=== PATIENT | female | born 1960 | race Caucasian/White ===

== ENCOUNTER 2017-03-13 21:31 | Inpatient (IN) | payer BC ==
[2017-03-13] MEDS ORDERED: Famotidine IV* 10 MG/ML 2 ML (20 mg) IV ONE (22:39)
[2017-03-13] MEDS ORDERED: NS 0.9% 1000 ML* 1,000 ML IV ONE (22:39)
[2017-03-13] MEDS ORDERED: Ondansetron INJ* 2 MG/ML VIAL IV ONE (22:39)
[2017-03-13] MEDS ORDERED: Morphine INJ* 4 MG/ML 1 ML CARPUJECT IV ONE (22:39)
[2017-03-13 23:42] LABS: EGFR Non-African American 119.3 (>60)
[2017-03-13 23:53] LABS: ABS Basophils 0 10^3/ul (0-0.2); ABS Eosinophils 0 10^3/ul (0-0.6); ABS Lymphocytes 0.1 10^3/ul (1.0-4.8); ABS Monocytes 0.2 10^3/ul (0-0.8); ABS Neutrophils 0.9 10^3/ul (1.5-7.7); ABS Nucleated RBC 0 10^3/ul; Eosinophil % 0 % (0-6); Hematocrit 29 % (35-47); Hemoglobin 10.1 g/dl (12.0-16.0); Mean Corpuscular HGB Conc 35 g/dl (31-36); Mean Corpuscular Hemoglobin 28 pg (27-31); Mean Corpuscular Volume 81 fL (80-97); Mean Platelet Volume 7 um3 (7.4-10.4); Nucleated Red Blood Cells % 0.2; Platelet Count 73 10^3/ul (150-450); Red Blood Count 3.58 10^6/ul (4.0-5.4); Red Cell Distribution Width 15 % (10.5-15); White Blood Count 1.2 10^3/ul (3.5-10.8)
[2017-03-14] MEDS ORDERED: Diazepam SYRINGE* 5 MG/ML 2 ML SYRINGE (10 MG total) IV ONE (00:23)
--- NOTE | 2017-03-14 00:35 | ED ---
Kate Yusuf Edward, scribed for Nela Arnold MD on 03/13/17 at 2226 . Complex/Multi-Sys Presentation - HPI Summary HPI Summary: 57 y/o female presents to the ED c/o N/V intermittently throughout the day today. Pt also c/o ABD pain described as radiation pain. Not aggravated or alleviated with anything. Pt has been taking Zofran at home and and has a patch on right now. PMHx gastric CA - pt finished chemotherapy one week ago. CA dx . - History Of Current Complaint Chief Complaint: EDNauseaVomitDiarrh Time Seen by Provider: 03/13/17 22:21 Hx Obtained From: Patient Onset/Duration: Lasting Hours Timing: Intermittent, Lasting: Associated Signs And Symptoms: Positive: Nausea, Vomiting, Abdominal Pain - Allergies/Home Medications Allergies/Adverse Reactions: Allergies Allergy/AdvReac Type Severity Reaction Status Date / Time Bee Venom Allergy Hives/Diff. Verified 02/18/17 12:18 Breathing/I tching Influenza Vaccines Allergy Anaphylatic Verified 02/18/17 12:17 Shock Latex Allergy Hives Verified 10/05/16 15:07 Sulfate Allergy Hives/Diff. Verified 02/18/17 12:18 Breathing/I tching FLU SHOT Allergy Severe Anaphylatic Uncoded 10/05/16 15:07 Shock ANTS Allergy Hives Uncoded 10/05/16 15:07 BEES Allergy SWEELING, Uncoded 10/05/16 15:07 SOB SULFATES Allergy HIVES, SOB Uncoded 10/05/16 15:07 PMH/Surg Hx/FS Hx/Imm Hx Previously Healthy: No Endocrine/Hematology History: Reports: Hx Thyroid Disease, Hx Anemia - VIT B 12 SHOTS Denies: Hx Diabetes Cardiovascular History: Denies: Hx Hypertension, Hx Pacemaker/ICD, Other Cardiovascular Problems/ Disorders History: Denies: Hx Renal Disease Musculoskeletal History: Reports: Other Musculoskeletal History - hx of left knee injury several yrs ago starting. Sensory History: Reports: Hx Contacts or Glasses Denies: Hx Hearing Aid Opthamlomology History: Reports: Hx Contacts or Glasses Neurological History: Reports: Other Neuro Impairments/Disorders - Current neuropathic pain Psychiatric History: Reports: Hx Anxiety, Hx Depression - ON MEDS Denies: Hx Panic Disorder - Cancer History Cancer Type, Location and Year: STOMACH CA - Surgical History Surgery Procedure, Year, and Place: 1995, OVARIAN CYST , [facility] [place] - OVARY REMOVAL;. TONSILECTOMY, AGE 6,[facility] [place];. THYROID, 2000, [facility] [place] [facility];. HEMMORRHOIDECTOMY, 2003, [facility] [place];. C SPINE, 2009, [facility] [place];. KNEE SURGERY;. ABDOMINAL SURGERY FOR STOMACH CANCER REMOVAL Hx Anesthesia Reactions: No Infectious Disease History: No Infectious Disease History: Denies: Traveled Outside the [place] in Last 30 Days - Family History Known Family History: Positive: Unknown - Social History Alcohol Use: None Hx Substance Use: No Substance Use Type: Reports: None Hx Tobacco Use: Yes Smoking Status (MU): Former Smoker Type: Cigarettes Have You Smoked in the Last Year: No Review of Systems Constitutional: Negative Eyes: Negative ENT: Negative Cardiovascular: Negative Respiratory: Negative Positive: Abdominal Pain - radiation pain, Vomiting, Nausea Genitourinary: Negative Musculoskeletal: Negative Skin: Negative Neurological: Negative Psychological: Normal All Other Systems Reviewed And Are Negative: Yes Physical Exam - Summary Physical Exam Summary: VITAL SIGNS: Reviewed. GENERAL: Patient is a well-developed and nourished female who is lying comfortable in the stretcher. Patient is not in any acute respiratory distress. HEAD AND FACE: No signs of trauma. No ecchymosis, hematomas or skull depressions. No sinus tenderness. EYES: PERRLA, EOMI x 2, No injected conjunctiva, no nystagmus. EARS: Hearing grossly intact. Ear canals and tympanic membranes are within normal limits. MOUTH: Oropharynx within normal limits. NECK: Supple, trachea is midline, no adenopathy, no JVD, no carotid bruit, no c- spine tenderness, neck with full ROM. CHEST: Symmetric, no tenderness at palpation LUNGS: Clear to auscultation bilaterally. No wheezing or crackles. CVS: Regular rate and rhythm, S1 and S2 present, no murmurs or gallops appreciated. ABDOMEN: Soft, diffuse ABD tenderness mainly in the periumbilical region, mainly old. No signs of distention. No rebound no guarding, and no masses palpated. Bowel sounds are normal. EXTREMITIES: FROM in all major joints, no edema, no cyanosis or clubbing. NEURO: Alert and oriented x 3. No acute neurological deficits. Speech is normal and follows commands. SKIN: Dry and warm Triage Information Reviewed: Yes Vital Signs On Initial Exam: Initial Vitals Temp Pulse Resp BP Pulse Ox 96.7 F 95 18 124/93 98 03/13/17 21:44 03/13/17 21:44 03/13/17 21:44 03/13/17 21:44 03/13/17 21:44 Vital Signs Reviewed: Yes Diagnostics - Vital Signs Vital Signs Temp Pulse Resp BP Pulse Ox 03/13/17 21:44 96.7 F 95 18 124/93 98 - Laboratory Result Diagrams: 03/13/17 23:15 03/13/17 23:15 Lab Statement: Any lab studies that have been ordered have been reviewed, and results considered in the medical decision making process. Complex Multi-Symp Course/Dx Assessment/Plan: 57 y/o female with gastric CA presents to ED c/o vomiting starting today. Discussed the case with Dr. Talley of Oncology, who recommends the pt be admitted to the hospitalist. Spoke with Dr. Key who accepted the pt for admission. - Diagnoses Provider Diagnoses: Intractable vomiting - Physician Notifications Discussed Care Of Patient With: Tanja Talley Time Discussed With Above Provider: 00:24 Instructed by Provider To: Admit As Inpatient Discharge - Discharge Plan Condition: Stable Disposition: ADMITTED TO [facility] Referrals: Matt Owens, [employer] [Primary Care Provider] - The documentation as recorded by the Kate ceja Edward accurately reflects the service I personally performed and the decisions made by , eNla Arnold MD.
[2017-03-14] MEDS ORDERED: Diazepam INJ (NF) 5 MG/ML 10 ML VIAL (50 MG TOTAL) IV ONE (01:00)
[2017-03-14] MEDS ORDERED: Metoclopramide IV* 5 MG/ML 2 ML VIAL IV SLOW PU ONE (02:42)
[2017-03-14] MEDS ORDERED: Ondansetron INJ* 2 MG/ML VIAL IV ONE (02:43)
[2017-03-14] MEDS ORDERED: Albuterol 2.5 MG/3 ML NEB.SOL* (0.083%) INH PRN (04:59)
[2017-03-14] MEDS ORDERED: LORazepam INJ* 2 MG/ML 1 ML VIAL IV PRN (04:59)
[2017-03-14] MEDS: PROCHLORPERAZINE INJ 5 MG/ML 2 ML VIAL IV PRN (05:27)
[2017-03-14 05:48] LABS: EGFR Non-African American 147.9 (>60)
[2017-03-14 05:57] LABS: INR 1.05 (0.77-1.02)
--- NOTE | 2017-03-14 06:04 | HP ---
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 She began having intermittent N/V ~10days ago, but since Tuesday has been unable to keep any solids down. She has been successful keeping some, but not all liquids down. Her last chemo-TX was the Tuesday before last. Her last radio-TX was Tuesday the . She denies F/C, sweats, chest pain, SOB, palpitations, bloody or black emesis, or other issues aside from constipation. PMedHx gastric CA diagnosed 2016 anemia vitamin B deficiency hypothyroidism GERD depression Ambulatory Orders Nursing to reconcile. Epinephrine [Epipen 2-Santana] 0.3 mg IM SEE INSTRUCTIONS PRN 08/11/16 Ferrous Sulfate TAB* 325 mg PO DAILY 08/11/16 LORazepam TAB(*) [Ativan 1 MG TAB (*)] 1 mg PO Q6H PRN 08/11/16 Levothyroxine TAB* [Synthroid TAB*] 25 - 50 mcg PO SEE INSTRUCTIONS 08/11/16 Omeprazole CAP* [Prilosec CAP* 20 MG] 20 mg PO DAILY 08/11/16 Sucralfate TAB* [Carafate*] 1 gm PO ACHS 08/11/16 Cyanocobalamin INJ * [Vitamin B12 INJ *] 1,000 mcg IM MONTHLY 08/13/16 Docusate Sodium [Stool Softener] 100 mg PO DAILY PRN 08/13/16 Ibuprofen TAB* [Motrin TAB* 800 MG] 800 mg PO Q6H PRN 08/13/16 Muscle Relaxer PO PRN 08/13/16 Sertraline* [Zoloft*] 100 mg PO BEDTIME 08/13/16 traMADol TAB* [Ultram*] 1 - 2 tab PO Q6HR PRN 08/13/16 Dronabinol CAP* [Marinol CAP*] 2.5 mg PO BID 09/27/16 Ondansetron ODT TAB* [Zofran 4 MG Odt TAB*] 4 mg PO Q4H PRN 09/27/16 Scopolamine 1.5 mg* PATCH* [Transderm-Scop 1.5 mg Patch*] 1 patch TRANSDERM Q72H 09/27/16 oxyCODONE TAB* [Roxycodone TAB 5 mg*] 5 mg PO Q6H PRN 09/27/16 oxyCODONE TAB* [Roxycodone TAB 5 mg*] 5 mg PO Q4H PRN #120 tab MDD 30mg LORazepam TAB(*) [Ativan 1 MG TAB (*)] 1 mg PO Q6H PRN #120 tab MDD 4mg Morphine TAB Extended Rel(*) [Ms Contin(*)] 15 mg PO Q12HR #60 tab.er MDD 30 mg 02/22/17 Allergies Bee Venom Allergy (Verified 02/18/17 12:18) Hives/Diff.Breathing/Itching Influenza Vaccines Allergy (Verified 02/18/17 12:17) Anaphylatic Shock Latex Allergy (Verified 10/05/16 15:07) Hives HIVES Sulfate Allergy (Verified 02/18/17 12:18) Hives/Diff.Breathing/Itching FLU SHOT Allergy (Severe, Uncoded 10/05/16 15:07) Anaphylatic Shock ANTS Allergy (Uncoded 10/05/16 15:07) Hives HIVES BEES Allergy (Uncoded 10/05/16 15:07) SWEELING, SOB SWELLING, SOB SULFATES Allergy (Uncoded 10/05/16 15:07) HIVES, SOB SOB, HIVES PSurgHx partial thyroidectomy not for cancer C 6-7 laminectomy section L knee arthroscopy tonsillectomy laparotomy for gastric CA (halted 2nd supa-aortic involvement) SocHx: quit smoking >25years ago, no alcohol or recreational drugs, uses marijuana for pain/nausea; [employer]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; , lives with her ; full code status FamHx: positive for lung CA & alcoholism ROS: as above, otherwise reviewed and all were negative vitals: Vital Signs Temp 36.8 C 03/14/17 04:59 Pulse 89 03/14/17 02:00 Resp 18 03/14/17 05:00 BP 120/74 03/14/17 05:21 Pulse Ox 98 01/22/18 05:21 Intake & Output 03/13/17 03/13/17 03/14/17 11:59 23:59 11:59 Intake Total 1000 Balance 1000 Weight 64.864 kg Intake: IV Fluids 1000 Constitutional: NAD, normally developed, well-nourished white female HEENM: atraumatic; sclera/conjunctiva: anicteric/clear; hearing: clinically intact; oropharynx: clear, mucosa moist Neck: soft tissue: non-tender; thyroid: non-tender Pulmonary: clear to auscultation bilaterally, good aeration, no accessory muscle use CV: RR/RR, normal S1S2, no carotid bruit, no jugular venous distention, 2+ B DP/ PT, no edema Abdominal: soft, non-distended, diffusely mildly tender, no rebound/guarding/ rigidity, normoactive bowel sounds, no hepatosplenomegaly or masses, no costovertebral angle tenderness Musculoskeletal: general: grossly intact; gait: stable Integumental: normal appearance and texture of exposed skin Psychiatric orientation: AA&O to PPS affect: calm mood: cooperative eye contact: good content: reliable responses: timely insight: good Testing: Lab Results 03/13/17 03/13/17 03/13/17 Range/Units 23:15 23:15 23:15 WBC 1.2 L (3.5-10.8) 10^3/ul RBC 3.58 L (4.0-5.4) 10^6/ul Hgb 10.1 L (12.0-16.0) g/dl Hct 29 L (35-47) % MCV 81 (80-97) fL MCH 28 (27-31) pg MCHC 35 (31-36) g/dl RDW 15 (10.5-15) % Plt Count 73 L (150-450) 10^3/ul MPV 7 L (7.4-10.4) um3 Neut % (Auto) 76.8 (38-83) % Lymph % (Auto) 7.0 L (25-47) % [place] % (Auto) 15.8 H (1-9) % Eos % (Auto) 0 (0-6) % Baso % (Auto) 0.4 (0-2) % Absolute Neuts (auto) 0.9 L* (1.5-7.7) 10^3/ul Absolute Lymphs (auto) 0.1 L (1.0-4.8) 10^3/ul Absolute Monos (auto) 0.2 (0-0.8) 10^3/ul Absolute Eos (auto) 0 (0-0.6) 10^3/ul Absolute Basos (auto) 0 (0-0.2) 10^3/ul Absolute Nucleated RBC 0 10^3/ul Nucleated RBC % 0.2 INR (Anticoag Therapy) (0.77-1.02) APTT (26.0-36.3) seconds Sodium 138 (133-145) mmol/L Potassium 3.7 (3.5-5.0) mmol/L Chloride 106 (101-111) mmol/L Carbon Dioxide 26 (22-32) mmol/L Anion Gap 6 (2-11) mmol/L BUN 14 (6-24) mg/dL Creatinine 0.53 (0.51-0.95) mg/dL Est GFR ( Amer) 153.5 (>60) Est GFR (Non-Af Amer) 119.3 (>60) BUN/Creatinine Ratio 26.4 H (8-20) Glucose 98 (70-100) mg/dL Lactic Acid 0.6 (0.5-2.0) mmol/L Calcium 9.5 (8.6-10.3) mg/dL Total Bilirubin 0.30 (0.2-1.0) mg/dL AST 12 L (13-39) U/L ALT 7 (7-52) U/L Alkaline Phosphatase 48 (34-104) U/L Total Protein 6.1 L (6.4-8.9) g/dL Albumin 3.5 (3.2-5.2) g/dL Globulin 2.6 (2-4) g/dL Albumin/Globulin Ratio 1.3 (1-3) Amylase 31 (29-103) U/L Lipase < 10 L (11.0-82.0) U/L 03/14/17 03/14/17 Range/Units 05:10 05:10 WBC (3.5-10.8) 10^3/ul RBC (4.0-5.4) 10^6/ul Hgb (12.0-16.0) g/dl Hct (35-47) % MCV (80-97) fL MCH (27-31) pg MCHC (31-36) g/dl RDW (10.5-15) % Plt Count (150-450) 10^3/ul MPV (7.4-10.4) um3 Neut % (Auto) (38-83) % Lymph % (Auto) (25-47) % [place] % (Auto) (1-9) % Eos % (Auto) (0-6) % Baso % (Auto) (0-2) % Absolute Neuts (auto) (1.5-7.7) 10^3/ul Absolute Lymphs (auto) (1.0-4.8) 10^3/ul Absolute Monos (auto) (0-0.8) 10^3/ul Absolute Eos (auto) (0-0.6) 10^3/ul Absolute Basos (auto) (0-0.2) 10^3/ul Absolute Nucleated RBC 10^3/ul Nucleated RBC % INR (Anticoag Therapy) 1.05 H (0.77-1.02) APTT 31.2 (26.0-36.3) seconds Sodium (133-145) mmol/L Potassium (3.5-5.0) mmol/L Chloride (101-111) mmol/L Carbon Dioxide (22-32) mmol/L Anion Gap (2-11) mmol/L BUN 14 (6-24) mg/dL Creatinine 0.44 L (0.51-0.95) mg/dL Est GFR ( Amer) 190.2 (>60) Est GFR (Non-Af Amer) 147.9 (>60) BUN/Creatinine Ratio (8-20) Glucose (70-100) mg/dL Lactic Acid (0.5-2.0) mmol/L Calcium (8.6-10.3) mg/dL Total Bilirubin (0.2-1.0) mg/dL AST (13-39) U/L ALT (7-52) U/L Alkaline Phosphatase (34-104) U/L Total Protein (6.4-8.9) g/dL Albumin (3.2-5.2) g/dL Globulin (2-4) g/dL Albumin/Globulin Ratio (1-3) Amylase (29-103) U/L Lipase (11.0-82.0) U/L Impression: 57F on treatment for locally advanced gastric CA presenting with intractable N/V, neutropenia DIAGNOSIS & PLAN Primary intractable N/V : anti-emetics : IVFs : trend labs, monitor neutropenia & pancytopenia 2nd chemo-TX : neutropenic precautions : trend locally advanced gastric CA : management per oncology Secondary hypothyroidism : review meds once reconciled GERD : omeprazole depression : continue meds once reconciled Admission Rational: observation for intractable N/V DVTp: heparin SQ Code Status: full HCP:
[2017-03-14] MEDS: NS 0.9% 1000 ML* 1,000 ML IV SCH ×3 (06:21→22:18)
[2017-03-14] MEDS: Docusate CAP* 100 MG PO SCH ×2 (07:57→22:12)
[2017-03-14] MEDS: Pantoprazole IV* 40 MG IV SCH (07:58)
[2017-03-14] MEDS: Magic M W2 Ben/Maal/Nyst/Lido* 240 ML MOUTHWASH (alt formulation) SWISH SWAL SCH ×2 (07:58→13:27)
--- NOTE | 2017-03-14 10:24 | PN ---
Progress Note - Progress Note Date of Service: 03/14/17 SOAP: Subjective: []Feels a little better than overnight, but still cont.'d discomfort. Nausea and abd. pain/burning. Threw up this AM. Has a lot of phlegm. Room temp. fluids are best. Frustrated with wt. loss and concerned what this will mean for potential surgery. Tired and just wants to sleep. Medications: Acetaminophen (Tylenol Tab*) 650 mg PO Q6H PRN PRN Reason: FEVER/PAIN Albuterol (Ventolin 2.5 Mg/3 Ml Neb.Liz*) 2.5 mg INH Q2H PRN PRN Reason: SOB/WHEEZING Docusate Sodium (Colace Cap*) 200 mg PO BID [facility] Last Admin: 03/14/17 07:57 Dose: 200 mg Heparin Sodium (Porcine) (Heparin Vial(*)) 5,000 units SUBCUT Q8HR [facility] Sodium Chloride (Ns 0.9% 1000 Ml*) 1,000 mls @ 125 mls/hr IV PER RATE [facility] Last Admin: 03/14/17 06:21 Dose: 125 mls/hr Lorazepam (Ativan Inj*) 0.5 mg IV Q4H PRN PRN Reason: nausea Melatonin (Melatonin (Nf)) 3 mg PO BEDTIME PRN; Protocol PRN Reason: Sleep Metoclopramide HCl (Reglan Iv*) 10 mg IV Q6H PRN PRN Reason: NAUSEA Morphine Sulfate (Morphine Inj (Syringe)*) 4 mg IV Q4H PRN PRN Reason: PAIN Morphine Sulfate (Ms Contin(*)) 15 mg PO Q12HR [facility] Multi-Ingredient Mouthwash/Gargle (Magic M W2 Sherwin/Maal/Nyst/Lido*) 5 ml SWISH SWAL AC [facility] Last Admin: 03/14/17 07:58 Dose: 5 ml Ondansetron HCl (Zofran Inj*) 4 mg IV Q6H PRN PRN Reason: NAUSEA Pantoprazole Sodium (Protonix Iv*) 40 mg IV DAILY [facility] Last Admin: 03/14/17 07:58 Dose: 40 mg Prochlorperazine Edisylate (Compazine Inj*) 10 mg IV Q6H PRN PRN Reason: NAUSEA Last Admin: 03/14/17 05:27 Dose: 10 mg Sucralfate (Carafate*) 1 gm PO ACHS DARREN Objective: [] Vital Signs Temp Pulse Resp BP Pulse Ox 98.2 F 73 19 130/76 99 03/14/17 08:09 03/14/17 08:09 03/14/17 09:42 03/14/17 08:09 03/14/17 08:09 A&Ox3, EOMI, ROACH, neuro grossly non-focal HRR, S1S2, no murmur noted LS clear bilat., resp. even and non-labored +BS, abd. soft with mild tenderness to LLQ Laboratory Results - last 24 hr 03/13/17 03/13/17 03/13/17 23:15 23:15 23:15 WBC 1.2 L RBC 3.58 L Hgb 10.1 L Hct 29 L MCV 81 MCH 28 MCHC 35 RDW 15 Plt Count 73 L MPV 7 L Neut % (Auto) 76.8 Lymph % (Auto) 7.0 L [place] % (Auto) 15.8 H Eos % (Auto) 0 Baso % (Auto) 0.4 Absolute Neuts (auto) 0.9 L* Absolute Lymphs (auto) 0.1 L Absolute Monos (auto) 0.2 Absolute Eos (auto) 0 Absolute Basos (auto) 0 Absolute Nucleated RBC 0 Nucleated RBC % 0.2 INR (Anticoag Therapy) APTT Sodium 138 Potassium 3.7 Chloride 106 Carbon Dioxide 26 Anion Gap 6 BUN 14 Creatinine 0.53 Est GFR ( Amer) 153.5 Est GFR (Non-Af Amer) 119.3 BUN/Creatinine Ratio 26.4 H Glucose 98 Lactic Acid 0.6 Calcium 9.5 Total Bilirubin 0.30 AST 12 L ALT 7 Alkaline Phosphatase 48 Total Protein 6.1 L Albumin 3.5 Globulin 2.6 Albumin/Globulin Ratio 1.3 Amylase 31 Lipase < 10 L 03/14/17 03/14/17 05:10 05:10 WBC RBC Hgb Hct MCV MCH MCHC RDW Plt Count MPV Neut % (Auto) Lymph % (Auto) [place] % (Auto) Eos % (Auto) Baso % (Auto) Absolute Neuts (auto) Absolute Lymphs (auto) Absolute Monos (auto) Absolute Eos (auto) Absolute Basos (auto) Absolute Nucleated RBC Nucleated RBC % INR (Anticoag Therapy) 1.05 H APTT 31.2 Sodium Potassium Chloride Carbon Dioxide Anion Gap BUN 14 Creatinine 0.44 L Est GFR ( Amer) 190.2 Est GFR (Non-Af Amer) 147.9 BUN/Creatinine Ratio Glucose Lactic Acid Calcium Total Bilirubin AST ALT Alkaline Phosphatase Total Protein Albumin Globulin Albumin/Globulin Ratio Amylase Lipase Assessment: []57 yo female with locally advanced gastric cancer now s/p combined carbo/taxol /XRT admitted with intractable nausea and vomiting 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 Plan: []1. Cont. OBV through today, needs to have PO intake without emesis prior to d/ c 2. Increase ativan IV frequency to q4hrs, resume carafate, change MMW to BMX, add H2 alex along with PPI 3. Check labs in AM 4. Med Rec, resume Morphine ER and will add IV for breakthrough 5. Soft diet encouraged
[2017-03-14] MEDS: Morphine TAB Extended Release (*) 15 MG TAB.ER PO SCH ×2 (10:27→22:13)
[2017-03-14] MEDS: Morphine INJ* 4 MG/ML 1 ML CARPUJECT IV PRN ×3 (10:27→22:14)
[2017-03-14] MEDS: Sucralfate TAB* 1 GM PO SCH ×3 (14:23→22:12)
[2017-03-14] MEDS: LORazepam INJ* 2 MG/ML 1 ML VIAL IV PRN ×2 (14:23→22:14)
[2017-03-14] MEDS: Magic Mouth Was-BEN/MAAL/LIDO SWISH SWAL SCH ×4 (14:24→22:18)
[2017-03-14] MEDS: Famotidine IV* 10 MG/ML 2 ML (20 mg) IV SCH (14:24)
[2017-03-14] MEDS: Ondansetron INJ* 2 MG/ML VIAL IV PRN (19:55)
[2017-03-14] MEDS ORDERED: Famotidine IV * 20 MG in NS 0.9% 100 ML* 100 ML IVPB SCH (20:00)
[2017-03-14] MEDS ORDERED: Omeprazole CAP* 20 MG ONE (21:11)
[2017-03-15] MEDS: Heparin VIAL(*) 5000 UNITS/ML VIAL (FIVE THOUSAND) SUBCUT SCH ×3 (04:31→22:25)
[2017-03-15] MEDS: Morphine INJ* 4 MG/ML 1 ML CARPUJECT IV PRN ×3 (04:31→19:40)
[2017-03-15 05:01] LABS: EGFR Non-African American 137.1 (>60)
[2017-03-15 05:33] LABS: ABS Basophils 0 10^3/ul (0-0.2); ABS Eosinophils 0 10^3/ul (0-0.6); ABS Lymphocytes 0.1 10^3/ul (1.0-4.8); ABS Monocytes 0.2 10^3/ul (0-0.8); ABS Neutrophils 0.5 10^3/ul (1.5-7.7); ABS Nucleated RBC 0 10^3/ul; Eosinophil % 0 % (0-6); Hematocrit 27 % (35-47); Hemoglobin 9.2 g/dl (12.0-16.0); Lymphocyte % 16.6 % (25-47); Mean Corpuscular HGB Conc 34 g/dl (31-36); Mean Corpuscular Hemoglobin 28 pg (27-31); Mean Corpuscular Volume 82 fL (80-97); Mean Platelet Volume 6 um3 (7.4-10.4); Nucleated Red Blood Cells % 0; Platelet Count 64 10^3/ul (150-450); Red Blood Count 3.27 10^6/ul (4.0-5.4); Red Cell Distribution Width 15 % (10.5-15); White Blood Count 0.8 10^3/ul (3.5-10.8)
[2017-03-15] MEDS: NS 0.9% 1000 ML* 1,000 ML IV SCH ×2 (06:00→23:09)
[2017-03-15] MEDS: Acetaminophen TAB* 325 MG PO PRN (06:03)
[2017-03-15] MEDS: Docusate CAP* 100 MG PO SCH ×2 (08:03→19:41)
[2017-03-15] MEDS: Morphine TAB Extended Release (*) 15 MG TAB.ER PO SCH ×2 (08:03→19:41)
[2017-03-15] MEDS: Sucralfate TAB* 1 GM PO SCH (08:03)
[2017-03-15] MEDS: Ondansetron INJ* 2 MG/ML VIAL IV PRN ×2 (08:04→15:03)
[2017-03-15] MEDS: Famotidine IV* 10 MG/ML 2 ML (20 mg) IV SCH (08:04)
[2017-03-15] MEDS: Pantoprazole IV* 40 MG IV SCH (08:04)
[2017-03-15] MEDS: Magic Mouth Was-BEN/MAAL/LIDO SWISH SWAL SCH ×4 (08:04→19:41)
[2017-03-15] MEDS: LORazepam INJ* 2 MG/ML 1 ML VIAL IV PRN ×2 (10:33→16:46)
[2017-03-15] MEDS: Sucralfate SUSP 1 GM/10 ml 10 ML UDC PO SCH ×3 (13:28→19:42)
[2017-03-15] MEDS: CMCS: Melatonin (NF) 3 MG TAB PO PRN (19:38)
[2017-03-15] MEDS: Metoclopramide IV* 5 MG/ML 2 ML VIAL IV PRN (19:39)
[2017-03-16] MEDS: Ondansetron INJ* 2 MG/ML VIAL IV PRN ×2 (01:50→08:57)
[2017-03-16] MEDS: PROCHLORPERAZINE INJ 5 MG/ML 2 ML VIAL IV PRN ×2 (02:17→15:11)
[2017-03-16] MEDS: LORazepam INJ* 2 MG/ML 1 ML VIAL IV PRN ×4 (02:29→21:37)
[2017-03-16] MEDS: Heparin VIAL(*) 5000 UNITS/ML VIAL (FIVE THOUSAND) SUBCUT SCH ×3 (04:17→21:25)
[2017-03-16] MEDS: Metoclopramide IV* 5 MG/ML 2 ML VIAL IV PRN ×2 (05:35→17:35)
[2017-03-16 06:24] LABS: ABS Basophils 0 10^3/ul (0-0.2); ABS Eosinophils 0 10^3/ul (0-0.6); ABS Lymphocytes 0.1 10^3/ul (1.0-4.8); ABS Monocytes 0.2 10^3/ul (0-0.8); ABS Neutrophils 0.6 10^3/ul (1.5-7.7); ABS Nucleated RBC 0 10^3/ul; Eosinophil % 0 % (0-6); Hematocrit 26 % (35-47); Hemoglobin 8.9 g/dl (12.0-16.0); Lymphocyte % 13.3 % (25-47); Mean Corpuscular HGB Conc 35 g/dl (31-36); Mean Corpuscular Hemoglobin 28 pg (27-31); Mean Corpuscular Volume 81 fL (80-97); Mean Platelet Volume 6 um3 (7.4-10.4); Nucleated Red Blood Cells % 0.1; Platelet Count 51 10^3/ul (150-450); Red Blood Count 3.17 10^6/ul (4.0-5.4); Red Cell Distribution Width 15 % (10.5-15); White Blood Count 0.9 10^3/ul (3.5-10.8)
[2017-03-16 06:30] LABS: EGFR Non-African American 160.5 (>60)
[2017-03-16] MEDS: NS 0.9% 1000 ML* 1,000 ML IV SCH ×2 (07:25→16:56)
[2017-03-16] MEDS: Pantoprazole IV* 40 MG IV SCH (08:58)
[2017-03-16] MEDS: Famotidine IV* 10 MG/ML 2 ML (20 mg) IV SCH (08:58)
[2017-03-16] MEDS: Morphine TAB Extended Release (*) 15 MG TAB.ER PO SCH ×2 (09:09→21:24)
[2017-03-16] MEDS: Docusate CAP* 100 MG PO SCH ×2 (09:09→21:25)
[2017-03-16] MEDS: Acetaminophen TAB* 325 MG PO PRN (09:10)
[2017-03-16] MEDS: Magic Mouth Was-BEN/MAAL/LIDO SWISH SWAL SCH ×4 (10:17→21:23)
[2017-03-16] MEDS: Sucralfate SUSP 1 GM/10 ml 10 ML UDC PO SCH ×3 (10:18→23:24)
[2017-03-16] MEDS: Morphine INJ* 4 MG/ML 1 ML CARPUJECT IV PRN ×2 (12:06→17:47)
[2017-03-17] MEDS: NS 0.9% 1000 ML* 1,000 ML IV SCH (01:37)
[2017-03-17] MEDS: Sucralfate SUSP 1 GM/10 ml 10 ML UDC PO SCH ×4 (05:37→20:15)
[2017-03-17] MEDS: Heparin VIAL(*) 5000 UNITS/ML VIAL (FIVE THOUSAND) SUBCUT SCH ×3 (05:38→21:31)
[2017-03-17] MEDS: LORazepam INJ* 2 MG/ML 1 ML VIAL IV PRN ×4 (06:01→20:32)
[2017-03-17] MEDS: Ondansetron INJ* 2 MG/ML VIAL IV PRN ×2 (06:01→14:04)
[2017-03-17] MEDS: Morphine INJ* 4 MG/ML 1 ML CARPUJECT IV PRN ×2 (06:02→12:34)
[2017-03-17 06:22] LABS: EGFR Non-African American 151.9 (>60)
[2017-03-17 06:30] LABS: ABS Basophils 0 10^3/ul (0-0.2); ABS Eosinophils 0 10^3/ul (0-0.6); ABS Lymphocytes 0.1 10^3/ul (1.0-4.8); ABS Monocytes 0.2 10^3/ul (0-0.8); ABS Neutrophils 0.5 10^3/ul (1.5-7.7); ABS Nucleated RBC 0 10^3/ul; Eosinophil % 0 % (0-6); Hematocrit 26 % (35-47); Hemoglobin 9.3 g/dl (12.0-16.0); Lymphocyte % 14.5 % (25-47); Mean Corpuscular HGB Conc 35 g/dl (31-36); Mean Corpuscular Hemoglobin 28 pg (27-31); Mean Corpuscular Volume 80 fL (80-97); Mean Platelet Volume 6 um3 (7.4-10.4); Nucleated Red Blood Cells % 0; Platelet Count 45 10^3/ul (150-450); Red Blood Count 3.28 10^6/ul (4.0-5.4); Red Cell Distribution Width 15 % (10.5-15); White Blood Count 0.8 10^3/ul (3.5-10.8)
[2017-03-17] MEDS: Docusate CAP* 100 MG PO SCH ×2 (09:01→20:16)
[2017-03-17] MEDS: Morphine TAB Extended Release (*) 15 MG TAB.ER PO SCH ×2 (09:01→20:15)
[2017-03-17] MEDS: Metoclopramide IV* 5 MG/ML 2 ML VIAL IV PRN (09:02)
[2017-03-17] MEDS: Famotidine IV* 10 MG/ML 2 ML (20 mg) IV SCH (09:02)
[2017-03-17] MEDS: Pantoprazole IV* 40 MG IV SCH ×2 (09:02→20:15)
--- NOTE | 2017-03-17 09:56 | PN ---
Progress Note - Progress Note Date of Service: 03/17/17 SOAP: Subjective: feels miserable today. still dry heaving with any eating as well as spontaneously. pain not well controlled. essentially no PO intake in days. Objective: Vital Signs Temp Pulse Resp BP Pulse Ox 98.4 F 100 16 142/86 99 03/17/17 05:43 03/17/17 05:43 03/17/17 09:01 03/17/17 05:43 03/17/17 05:43 ill appearing did not do full exam due to active dry heaving Laboratory Results - last 24 hr 03/17/17 03/17/17 05:45 05:45 WBC 0.8 L RBC 3.28 L Hgb 9.3 L Hct 26 L MCV 80 MCH 28 MCHC 35 RDW 15 Plt Count 45 L MPV 6 L Neut % (Auto) 63.8 Lymph % (Auto) 14.5 L [place] % (Auto) 21.4 H Eos % (Auto) 0 Baso % (Auto) 0.3 Absolute Neuts (auto) 0.5 L* Absolute Lymphs (auto) 0.1 L Absolute Monos (auto) 0.2 Absolute Eos (auto) 0 Absolute Basos (auto) 0 Absolute Nucleated RBC 0 Nucleated RBC % 0 Sodium 137 Potassium 3.2 L Chloride 106 Carbon Dioxide 21 L Anion Gap 10 BUN 4 L Creatinine 0.43 L Est GFR ( Amer) 195.3 Est GFR (Non-Af Amer) 151.9 BUN/Creatinine Ratio 9.3 Glucose 84 Calcium 8.6 Acetaminophen (Tylenol Tab*) 650 mg PO Q6H PRN PRN Reason: FEVER/PAIN Last Admin: 03/16/17 09:10 Dose: 650 mg Albuterol (Ventolin 2.5 Mg/3 Ml Neb.Liz*) 2.5 mg INH Q2H PRN PRN Reason: SOB/WHEEZING Docusate Sodium (Colace Cap*) 200 mg PO BID [facility] Last Admin: 03/17/17 09:01 Dose: 200 mg Famotidine (Pepcid Iv*) 20 mg IV DAILY [facility] Last Admin: 03/17/17 09:02 Dose: 20 mg Heparin Sodium (Porcine) (Heparin Vial(*)) 5,000 units SUBCUT Q8HR [facility] Last Admin: 03/17/17 05:38 Dose: 5,000 units Potassium Chloride/Sodium Chloride (Ns 0.9% W/ 40 Meq Kcl 1000 Ml*) 1,000 mls @ 100 mls/hr IV PER RATE [facility] Dexamethasone Sodium Phosphate (8 mg/ Sodium Chloride) 52 mls @ 208 mls/hr IVPB Q8HR [facility] Sodium Chloride 100 meq/Potassium Chloride 50 meq/Potassium Phosphate 15 mmole/ Calcium Gluconate 15 meq/Magnesium Sulfate 10 meq/Multivitamins 10 ml/ Trace Metals 1 ml/ Phytonadione /Insulin Human Regular / Sodium Acetate / Famotidine / Dextrose 1,000 ml/ Amino Acids 850 ml/ Sterile Water 150 ml/Fat Emulsion Intravenous 250 ml/ Nutrition (Parenteral) 2,350.721 mls @ 97.947 mls/hr CENT\ PICC 1700 [facility] Lorazepam (Ativan Inj*) 0.5 mg IV Q4H PRN PRN Reason: nausea Last Admin: 03/17/17 06:01 Dose: 0.5 mg Melatonin (Melatonin (Nf)) 3 mg PO BEDTIME PRN; Protocol PRN Reason: Sleep Last Admin: 03/15/17 19:38 Dose: 3 mg Metoclopramide HCl (Reglan Iv*) 10 mg IV Q6H PRN PRN Reason: NAUSEA Last Admin: 03/17/17 09:02 Dose: 10 mg Morphine Sulfate (Morphine Inj (Syringe)*) 4 mg IV Q4H PRN PRN Reason: PAIN Last Admin: 03/17/17 06:02 Dose: 4 mg Morphine Sulfate (Ms Contin(*)) 30 mg PO Q12HR [facility] Multi-Ingredient Mouthwash/Gargle (Magic Mouth Was-Sherwin/Maal/Lido*) 5 ml SWISH SWAL QID [facility] Last Admin: 03/16/17 21:23 Dose: Not Given Ondansetron HCl (Zofran Inj*) 4 mg IV Q6H PRN PRN Reason: NAUSEA Last Admin: 03/17/17 06:01 Dose: 4 mg Pantoprazole Sodium (Protonix Iv*) 40 mg IV BID [facility] Prochlorperazine Edisylate (Compazine Inj*) 10 mg IV Q6H PRN PRN Reason: NAUSEA Last Admin: 03/16/17 15:11 Dose: 10 mg Sucralfate (Sucralfate Susp) 1 gm PO 0630,1100,1600,2100 [facility] Last Admin: 03/17/17 05:37 Dose: 1 gm Assessment: 57 yo F w locally advanced gastric cancer sp combined modality chemoRT finishing last Tuesday now with intractable nausea and vomiting, therapy related. Plan: Given very little PO intake will start TPN add back in home marinol and olanzapine, as well as IV dex to see if this helps with vomiting cont carafate, zofran, ativan, reglan, compazine increase protonix to BID replete k+ IV
[2017-03-17] MEDS: Magic Mouth Was-BEN/MAAL/LIDO SWISH SWAL SCH ×4 (10:17→20:16)
[2017-03-17] MEDS: PROCHLORPERAZINE INJ 5 MG/ML 2 ML VIAL IV PRN (11:27)
[2017-03-17] MEDS: Dexamethasone IV* 8 MG in NS 0.9% 50 ML* 50 ML IVPB SCH ×3 (11:36→21:31)
[2017-03-17] MEDS: Dronabinol CAP* 2.5 MG PO SCH ×2 (14:03→20:16)
[2017-03-17] MEDS: NS 0.9% w/ 40 Meq KCL 1000 ML* 1,000 ML IV SCH (14:19)
[2017-03-17] MEDS ORDERED: TPN* 24 HR with Sodium Chloride Conc 23.4%* 100 MEQ, Potassium Chloride TPN 50 MEQ, Pot... CENT\\PICC SCH ×16 (17:00)
[2017-03-17] MEDS: TPN* 24 HR with Dextrose 50% Water* 500 ML, Amino Acid Infusion 10%* 850 ML, Sterile Wa... CENTR SCH ×13 (17:34)
[2017-03-17] MEDS: OLANzapine TAB*ODT* 10 MG TAB PO SCH (20:16)
[2017-03-18] MEDS: Morphine INJ* 4 MG/ML 1 ML CARPUJECT IV PRN ×4 (03:48→23:52)
[2017-03-18] MEDS: LORazepam INJ* 2 MG/ML 1 ML VIAL IV PRN ×4 (03:56→23:52)
[2017-03-18] MEDS: Dexamethasone IV* 8 MG in NS 0.9% 50 ML* 50 ML IVPB SCH (05:24)
[2017-03-18] MEDS: Heparin VIAL(*) 5000 UNITS/ML VIAL (FIVE THOUSAND) SUBCUT SCH ×3 (05:28→21:18)
[2017-03-18] MEDS: Sucralfate SUSP 1 GM/10 ml 10 ML UDC PO SCH ×4 (05:28→21:19)
[2017-03-18 06:58] LABS: ABS Basophils 0 10^3/ul (0-0.2); ABS Eosinophils 0 10^3/ul (0-0.6); ABS Lymphocytes 0.1 10^3/ul (1.0-4.8); ABS Monocytes 0.2 10^3/ul (0-0.8); ABS Neutrophils 1.2 10^3/ul (1.5-7.7); ABS Nucleated RBC 0 10^3/ul; Eosinophil % 0 % (0-6); Hematocrit 27 % (35-47); Hemoglobin 9.6 g/dl (12.0-16.0); Lymphocyte % 6.9 % (25-47); Mean Corpuscular HGB Conc 36 g/dl (31-36); Mean Corpuscular Hemoglobin 29 pg (27-31); Mean Corpuscular Volume 79 fL (80-97); Mean Platelet Volume 7 um3 (7.4-10.4); Nucleated Red Blood Cells % 0.1; Platelet Count 42 10^3/ul (150-450); Red Blood Count 3.37 10^6/ul (4.0-5.4); Red Cell Distribution Width 15 % (10.5-15); White Blood Count 1.5 10^3/ul (3.5-10.8)
--- NOTE | 2017-03-18 10:38 | PN ---
Progress Note - Progress Note Date of Service: 03/18/17 SOAP: Subjective: []No nausea today, more heart burn. Pain in esophagus, tight, pressure like pain. She is moving bowls fine, passing gas. No fevers. Acetaminophen (Tylenol Tab*) 650 mg PO Q6H PRN PRN Reason: FEVER/PAIN Last Admin: 03/16/17 09:10 Dose: 650 mg Albuterol (Ventolin 2.5 Mg/3 Ml Neb.Liz*) 2.5 mg INH Q2H PRN PRN Reason: SOB/WHEEZING Dexamethasone Sodium Phosphate (Decadron Iv*) 8 mg IV SLOW PU Q8HR [facility] Docusate Sodium (Colace Cap*) 200 mg PO BID [facility] Last Admin: 03/17/17 20:16 Dose: 200 mg Dronabinol (Marinol Cap*) 5 mg PO TID [facility] Last Admin: 03/17/17 20:16 Dose: 5 mg Heparin Sodium (Porcine) (Heparin Vial(*)) 5,000 units SUBCUT Q8HR [facility] Last Admin: 03/18/17 05:28 Dose: 5,000 units Potassium Chloride/Sodium Chloride (Ns 0.9% W/ 40 Meq Kcl 1000 Ml*) 1,000 mls @ 100 mls/hr IV PER RATE [facility] Last Admin: 03/17/17 14:19 Dose: 100 mls/hr Dextrose 500 ml/ Amino Acids 850 ml/ Sterile Water 150 ml/Fat Emulsion Intravenous 250 ml/ Sodium Chloride 100 meq/Potassium Chloride 50 meq/Potassium Phosphate 15 mmole/Calcium Gluconate 15 meq/Magnesium Sulfate 10 meq/ Multivitamins 10 ml/ Trace Metals 1 ml/ Famotidine 20 mg/Nutrition (Parenteral) 1,852.721 mls @ 77.2 mls/hr CENTR 1700 [facility] Last Admin: 03/17/17 17:34 Dose: 77.2 mls/hr Lorazepam (Ativan Inj*) 0.5 mg IV Q4H PRN PRN Reason: nausea Last Admin: 03/18/17 03:56 Dose: 0.5 mg Melatonin (Melatonin (Nf)) 3 mg PO BEDTIME PRN; Protocol PRN Reason: Sleep Last Admin: 03/15/17 19:38 Dose: 3 mg Metoclopramide HCl (Reglan Iv*) 10 mg IV Q6H PRN PRN Reason: NAUSEA Last Admin: 03/17/17 09:02 Dose: 10 mg Morphine Sulfate (Morphine Inj (Syringe)*) 4 mg IV Q4H PRN PRN Reason: PAIN Last Admin: 03/18/17 03:48 Dose: 4 mg Morphine Sulfate (Ms Contin(*)) 30 mg PO Q12HR [facility] Last Admin: 03/17/17 20:15 Dose: 30 mg Multi-Ingredient Mouthwash/Gargle (Magic Mouth Was-Sherwin/Maal/Lido*) 5 ml SWISH SWAL QID [facility] Last Admin: 03/17/17 20:16 Dose: Not Given Olanzapine (Zyprexa *Odt*) 10 mg PO BEDTIME [facility] Last Admin: 03/17/17 20:16 Dose: 10 mg Ondansetron HCl (Zofran Inj*) 4 mg IV Q6H PRN PRN Reason: NAUSEA Last Admin: 03/17/17 14:04 Dose: 4 mg Pantoprazole Sodium (Protonix Iv*) 40 mg IV BID [facility] Last Admin: 03/17/17 20:15 Dose: 40 mg Prochlorperazine Edisylate (Compazine Inj*) 10 mg IV Q6H PRN PRN Reason: NAUSEA Last Admin: 03/17/17 11:27 Dose: 10 mg Sucralfate (Sucralfate Susp) 1 gm PO 0630,1100,1600,2100 [facility] Last Admin: 03/18/17 05:28 Dose: 1 gm Objective: [] Vital Signs Temp Pulse Resp BP Pulse Ox 97.7 F 100 16 127/82 99 03/18/17 05:30 03/18/17 05:30 03/18/17 05:33 03/18/17 05:30 03/18/17 05:30 HEENT - no oral lesions, no thrush CTA RRR S1S2 Mild epigastric tenderness, no rebound, good BS ND Ext no C/C/E and warm to touch Neuro non focal Assessment: []57 yo female with locally advanced gastric cancer now s/p combined carbo/taxol /XRT admitted with intractable nausea and vomiting 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 Now converted to chest pain and burning, nausea resolved on current medication. Differential for pain is radiation induced gastritis vs esophageal spams. Plan: []1. Will modify anti-emetics. I will decrease Dex since may be adding to gastritis. Should not take Zyprexa and Reglan together, will hold Reglan. Continue Ativan and Zofran PRN. 2. Continue BID PPI and given possible spasm, try Nitro past 1/2 inch. 3. Continue TPN, check TPN panel today and tomorrow. 4. Increase Morphine ER to 30 q 8 and continue PRN morphine 5. Soft diet encouraged
[2017-03-18] MEDS: Morphine TAB Extended Release (*) 15 MG TAB.ER PO SCH ×3 (10:57→18:02)
[2017-03-18] MEDS: Pantoprazole IV* 40 MG IV SCH ×2 (11:06→21:18)
[2017-03-18] MEDS: Dronabinol CAP* 2.5 MG PO SCH ×3 (11:07→21:17)
[2017-03-18] MEDS: Ondansetron INJ* 2 MG/ML VIAL IV PRN (11:07)
[2017-03-18] MEDS: Docusate CAP* 100 MG PO SCH ×2 (11:08→21:17)
[2017-03-18] MEDS: Nitroglycerin 0.1 mg/Hr PATCH* (2.5 MG) TRANSDERM SCH (11:08)
[2017-03-18] MEDS: Magic Mouth Was-BEN/MAAL/LIDO SWISH SWAL SCH ×4 (11:35→21:18)
[2017-03-18] MEDS: NS 0.9% w/ 40 Meq KCL 1000 ML* 1,000 ML IV SCH ×2 (12:13→23:50)
[2017-03-18 13:04] LABS: EGFR Non-African American 133.8 (>60)
[2017-03-18] MEDS ORDERED: Dexamethasone IV* 4 MG/ML 1 ML (4 MG) IV SLOW PU SCH (14:00)
[2017-03-18] MEDS: TPN* 24 HR with Dextrose 50% Water* 500 ML, Amino Acid Infusion 10%* 850 ML, Sterile Wa... CENTR SCH ×13 (17:52)
[2017-03-18] MEDS: OLANzapine TAB*ODT* 10 MG TAB PO SCH (21:17)
[2017-03-18] MEDS: Dexamethasone IV* 4 MG/ML 1 ML (4 MG) IV SLOW PU SCH (21:18)
[2017-03-19] MEDS: Morphine TAB Extended Release (*) 15 MG TAB.ER PO SCH ×2 (02:03→10:47)
[2017-03-19] MEDS ORDERED: Nitro Patch/OINT Remove PATCH OFF SCH (06:00)
[2017-03-19] MEDS: Heparin VIAL(*) 5000 UNITS/ML VIAL (FIVE THOUSAND) SUBCUT SCH ×4 (06:01→23:17)
[2017-03-19] MEDS: Sucralfate SUSP 1 GM/10 ml 10 ML UDC PO SCH ×4 (06:01→19:48)
[2017-03-19 08:10] LABS: EGFR Non-African American 156.1 (>60)
[2017-03-19] MEDS: Dexamethasone IV* 4 MG/ML 1 ML (4 MG) IV SLOW PU SCH (08:33)
[2017-03-19] MEDS: Nitroglycerin 0.1 mg/Hr PATCH* (2.5 MG) TRANSDERM SCH (08:33)
[2017-03-19] MEDS: Pantoprazole IV* 40 MG IV SCH ×2 (08:33→19:52)
[2017-03-19] MEDS: Docusate CAP* 100 MG PO SCH ×2 (08:34→19:49)
[2017-03-19] MEDS: Dronabinol CAP* 2.5 MG PO SCH (08:34)
[2017-03-19] MEDS: Magic Mouth Was-BEN/MAAL/LIDO SWISH SWAL SCH ×4 (08:34→19:51)
[2017-03-19] MEDS: Morphine INJ* 4 MG/ML 1 ML CARPUJECT IV PRN ×2 (08:45→14:38)
[2017-03-19 09:35] LABS: ABS Basophils 0 10^3/ul (0-0.2); ABS Eosinophils 0 10^3/ul (0-0.6); ABS Lymphocytes 0.2 10^3/ul (1.0-4.8); ABS Monocytes 0.4 10^3/ul (0-0.8); ABS Neutrophils 1.3 10^3/ul (1.5-7.7); ABS Nucleated RBC 0 10^3/ul; Eosinophil % 0 % (0-6); Hematocrit 26 % (35-47); Hemoglobin 9.2 g/dl (12.0-16.0); Lymphocyte % 11.8 % (25-47); Mean Corpuscular HGB Conc 35 g/dl (31-36); Mean Corpuscular Hemoglobin 28 pg (27-31); Mean Corpuscular Volume 81 fL (80-97); Mean Platelet Volume 7 um3 (7.4-10.4); Nucleated Red Blood Cells % 0.1; Platelet Count 47 10^3/ul (150-450); Red Blood Count 3.27 10^6/ul (4.0-5.4); Red Cell Distribution Width 16 % (10.5-15); White Blood Count 1.9 10^3/ul (3.5-10.8)
[2017-03-19] MEDS: LORazepam INJ* 2 MG/ML 1 ML VIAL IV PRN ×2 (10:49→15:42)
--- NOTE | 2017-03-19 11:06 | PN ---
Progress Note - Progress Note Date of Service: 03/19/17 SOAP: Subjective: []Pain no better. Is feeling more emotional today. Got very upset over type of milk that came with breakfast. Has difficulty tracking medication. Anxious. Ativan is what helps the pain the most. Rash to NTG Acetaminophen (Tylenol Tab*) 650 mg PO Q6H PRN PRN Reason: FEVER/PAIN Last Admin: 03/16/17 09:10 Dose: 650 mg Albuterol (Ventolin 2.5 Mg/3 Ml Neb.Liz*) 2.5 mg INH Q2H PRN PRN Reason: SOB/WHEEZING Docusate Sodium (Colace Cap*) 200 mg PO BID [facility] Last Admin: 03/19/17 08:34 Dose: 200 mg Heparin Sodium (Porcine) (Heparin Vial(*)) 5,000 units SUBCUT Q8HR [facility] TPN Lorazepam (Ativan Inj*) 0.5 mg IV Q4H PRN PRN Reason: nausea Last Admin: 03/19/17 10:49 Dose: 0.5 mg Melatonin (Melatonin (Nf)) 3 mg PO BEDTIME PRN; Protocol PRN Reason: Sleep Last Admin: 03/15/17 19:38 Dose: 3 mg Morphine Sulfate (Ms Contin(*)) 30 mg PO Q8H [facility] Last Admin: 03/19/17 10:47 Dose: 30 mg Morphine Sulfate (Morphine Inj (Syringe)*) 4 mg IV Q2H PRN PRN Reason: PAIN Last Admin: 03/19/17 08:45 Dose: 4 mg Multi-Ingredient Mouthwash/Gargle (Magic Mouth Was-Sherwin/Maal/Lido*) 5 ml SWISH SWAL QID [facility] Last Admin: 03/19/17 08:34 Dose: Not Given Olanzapine (Zyprexa *Odt*) 10 mg PO BEDTIME [facility] Last Admin: 03/18/17 21:17 Dose: 10 mg Ondansetron HCl (Zofran Inj*) 4 mg IV Q6H PRN PRN Reason: NAUSEA Last Admin: 03/18/17 11:07 Dose: 4 mg Pantoprazole Sodium (Protonix Iv*) 40 mg IV BID [facility] Last Admin: 03/19/17 08:33 Dose: 40 mg Sucralfate (Sucralfate Susp) 1 gm PO 0630,1100,1600,2100 [facility] Last Admin: 03/19/17 10:47 Dose: Not Given Objective: [] Vital Signs Temp Pulse Resp BP Pulse Ox 98.1 F 77 12 106/75 99 03/19/17 03:56 03/19/17 03:56 03/19/17 10:49 03/19/17 03:56 03/19/17 03:56 HEENT - no oral lesions, no thrush CTA RRR S1S2 Mild epigastric tenderness, no rebound, good BS ND Ext no C/C/E and warm to touch Neuro non focal Assessment: []57 yo female with locally advanced gastric cancer now s/p combined carbo/taxol /XRT admitted with intractable nausea and vomiting 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 Now converted to chest pain and burning, nausea resolved. Today more difficulty with anxiety and some cognitive impact from medication. Plan: []1. Will modify medication today. Stop anti-emetics that have [employer] effects. Stop Marinol and Dex. NTG did not help for spasm, will stop. 2. Continue BID PPI and given possible spasm, try Nitro past 1/2 inch. 3. Continue TPN, increased phos and Mg. 4. Continue Morphine ER to 30 q 8 and continue PRN morphine 5. Soft diet encouraged
[2017-03-19] MEDS ORDERED: Morphine INJ* 4 MG/ML 1 ML CARPUJECT IV ONE (14:15)
[2017-03-19] MEDS: Acetaminophen TAB* 325 MG PO PRN (15:41)
[2017-03-19] MEDS ORDERED: TPN* 24 HR with Dextrose 50% Water* 500 ML, Amino Acid Infusion 10%* 850 ML, Sterile Wa... CENTR SCH ×13 (17:00)
[2017-03-19] MEDS: Morphine TAB Extended Release (*) 30 MG TAB.ER PO SCH (19:48)
[2017-03-19] MEDS: OLANzapine TAB*ODT* 10 MG TAB PO SCH (19:49)
[2017-03-20] MEDS: Morphine TAB Extended Release (*) 30 MG TAB.ER PO SCH ×2 (05:50→19:28)
[2017-03-20] MEDS: Heparin VIAL(*) 5000 UNITS/ML VIAL (FIVE THOUSAND) SUBCUT SCH ×3 (05:53→20:01)
[2017-03-20] MEDS: Morphine INJ* 4 MG/ML 1 ML CARPUJECT IV PRN ×5 (05:53→18:09)
[2017-03-20] MEDS: Sucralfate SUSP 1 GM/10 ml 10 ML UDC PO SCH ×5 (05:57→19:55)
[2017-03-20 06:58] LABS: EGFR Non-African American 105.4 (>60)
[2017-03-20 07:05] LABS: ABS Basophils 0 10^3/ul (0-0.2); ABS Eosinophils 0 10^3/ul (0-0.6); ABS Lymphocytes 0.3 10^3/ul (1.0-4.8); ABS Monocytes 0.3 10^3/ul (0-0.8); ABS Neutrophils 0.7 10^3/ul (1.5-7.7); ABS Nucleated RBC 0 10^3/ul; Eosinophil % 0 % (0-6); Hematocrit 28 % (35-47); Lymphocyte % 21.2 % (25-47); Mean Corpuscular HGB Conc 35 g/dl (31-36); Mean Corpuscular Hemoglobin 29 pg (27-31); Mean Corpuscular Volume 81 fL (80-97); Mean Platelet Volume 7 um3 (7.4-10.4); Nucleated Red Blood Cells % 0.6; Platelet Count 52 10^3/ul (150-450); Red Blood Count 3.49 10^6/ul (4.0-5.4); Red Cell Distribution Width 16 % (10.5-15); White Blood Count 1.3 10^3/ul (3.5-10.8)
[2017-03-20] MEDS: Docusate CAP* 100 MG PO SCH ×2 (08:35→19:42)
[2017-03-20] MEDS: Magic Mouth Was-BEN/MAAL/LIDO SWISH SWAL SCH ×4 (08:35→19:49)
[2017-03-20] MEDS: Pantoprazole IV* 40 MG IV SCH ×2 (08:42→19:42)
--- NOTE | 2017-03-20 08:52 | PN ---
Progress Note - Progress Note Date of Service: 03/20/17 SOAP: Subjective: []Better, feels turned a corner and pain is much better. Minimal nausea and ate breakfast today. Wants to go home. Acetaminophen (Tylenol Tab*) 650 mg PO Q6H PRN PRN Reason: FEVER/PAIN Last Admin: 03/19/17 15:41 Dose: 650 mg Albuterol (Ventolin 2.5 Mg/3 Ml Neb.Liz*) 2.5 mg INH Q2H PRN PRN Reason: SOB/WHEEZING Docusate Sodium (Colace Cap*) 200 mg PO BID [facility] Last Admin: 03/20/17 08:35 Dose: 200 mg Heparin Sodium (Porcine) (Heparin Vial(*)) 5,000 units SUBCUT Q8HR [facility] Last Admin: 03/20/17 05:53 Dose: 5,000 units Dextrose 500 ml/ Amino Acids 850 ml/ Sterile Water 150 ml/Fat Emulsion Intravenous 250 ml/ Sodium Chloride 100 meq/Potassium Chloride 50 meq/Potassium Phosphate 20 mmole/Calcium Gluconate 10 meq/Magnesium Sulfate 20 meq/ Multivitamins 10 ml/ Trace Metals 1 ml/ Famotidine 20 mg/Nutrition (Parenteral) 1,846.0978 mls @ 76.921 mls/hr [facility]EN[facility] 1700 [facility] Last Admin: 03/19/17 16:55 Dose: 76.921 mls/hr Lorazepam (Ativan Inj*) 0.5 mg IV Q4H PRN PRN Reason: nausea Last Admin: 03/19/17 15:42 Dose: 0.5 mg Melatonin (Melatonin (Nf)) 3 mg PO BEDTIME PRN; Protocol PRN Reason: Sleep Last Admin: 03/15/17 19:38 Dose: 3 mg Morphine Sulfate (Morphine Inj (Syringe)*) 4 mg IV Q2H PRN PRN Reason: PAIN Last Admin: 03/20/17 08:39 Dose: 4 mg Morphine Sulfate (Ms Contin(*)) 60 mg PO 0700,1900 [facility] Last Admin: 03/20/17 05:50 Dose: 60 mg Multi-Ingredient Mouthwash/Gargle (Magic Mouth Was-Sherwin/Maal/Lido*) 5 ml SWISH SWAL QID [facility] Last Admin: 03/20/17 08:35 Dose: 5 ml Olanzapine (Zyprexa *Odt*) 10 mg PO BEDTIME [facility] Last Admin: 03/19/17 19:49 Dose: 10 mg Ondansetron HCl (Zofran Inj*) 4 mg IV Q6H PRN PRN Reason: NAUSEA Last Admin: 03/18/17 11:07 Dose: 4 mg Pantoprazole Sodium (Protonix Iv*) 40 mg IV BID [facility] Last Admin: 03/20/17 08:42 Dose: 40 mg Sucralfate (Sucralfate Susp) 1 gm PO 0630,1100,1600,2100 [facility] Last Admin: 03/20/17 05:57 Dose: 1 gm Objective: [] Vital Signs Temp Pulse Resp BP Pulse Ox 97.3 F 82 18 104/60 99 03/20/17 02:15 03/20/17 02:15 03/20/17 08:42 03/20/17 02:15 03/20/17 02:15 HEENT - no oral lesions, no thrush CTA RRR S1S2 Mild epigastric tenderness, no rebound, good BS ND Ext no C/C/E and warm to touch Neuro non focal Assessment: []57 yo female with locally advanced gastric cancer now s/p combined carbo/taxol /XRT admitted with intractable nausea and vomiting 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 Now converted to chest pain and burning, nausea resolved. Improved today and has started to eat. Plan: []1. No change in medication today, Olanzapine, Ondansetron, Lorazepam for nausea. 2. Continue BID PPI for now. 3. Hold TPN after this bag. 4. Continue Morphine ER to 60 q 12 and continue PRN morphine 5. Soft diet encouraged, consider discharge tomorrow if doing well.
[2017-03-20] MEDS ORDERED: Magnesium Sulfate 2 GM IV* 2 GM/50 ML BAG IVPB ONE (08:55)
[2017-03-20] MEDS ORDERED: KCL 10 MEQ/50 ML IVPREMIX* 10 MEQ/50 ML BAG IV SCH (09:00)
[2017-03-20] MEDS: NS 0.9% w/ 40 Meq KCL 1000 ML* 1,000 ML IV SCH ×2 (09:43→22:42)
[2017-03-20] MEDS: LORazepam INJ* 2 MG/ML 1 ML VIAL IV PRN ×2 (11:38→19:42)
[2017-03-20] MEDS: OLANzapine TAB*ODT* 10 MG TAB PO SCH (19:42)
[2017-03-21] MEDS: NS 0.9% 1000 ML* 1,000 ML IV SCH ×3 (01:24→23:39)
[2017-03-21] MEDS: Morphine TAB Extended Release (*) 30 MG TAB.ER PO SCH ×2 (05:32→18:25)
[2017-03-21] MEDS: Sucralfate SUSP 1 GM/10 ml 10 ML UDC PO SCH ×4 (05:33→20:06)
[2017-03-21] MEDS: Heparin VIAL(*) 5000 UNITS/ML VIAL (FIVE THOUSAND) SUBCUT SCH ×3 (05:33→20:06)
[2017-03-21 06:04] LABS: ABS Basophils 0 10^3/ul (0-0.2); ABS Eosinophils 0 10^3/ul (0-0.6); ABS Lymphocytes 0.2 10^3/ul (1.0-4.8); ABS Monocytes 0.2 10^3/ul (0-0.8); ABS Neutrophils 0.6 10^3/ul (1.5-7.7); ABS Nucleated RBC 0 10^3/ul; Eosinophil % 0 % (0-6); Hematocrit 28 % (35-47); Hemoglobin 9.5 g/dl (12.0-16.0); Lymphocyte % 20.3 % (25-47); Mean Corpuscular HGB Conc 34 g/dl (31-36); Mean Corpuscular Hemoglobin 28 pg (27-31); Mean Corpuscular Volume 82 fL (80-97); Mean Platelet Volume 7 um3 (7.4-10.4); Nucleated Red Blood Cells % 0.5; Platelet Count 57 10^3/ul (150-450); Red Blood Count 3.38 10^6/ul (4.0-5.4); Red Cell Distribution Width 16 % (10.5-15)
[2017-03-21] MEDS: Magic Mouth Was-BEN/MAAL/LIDO SWISH SWAL SCH (08:20)
[2017-03-21] MEDS: Docusate CAP* 100 MG PO SCH ×2 (08:21→20:05)
[2017-03-21] MEDS: Pantoprazole IV* 40 MG IV SCH ×2 (08:22→20:06)
[2017-03-21] MEDS: LORazepam INJ* 2 MG/ML 1 ML VIAL IV PRN (08:35)
[2017-03-21] MEDS ORDERED: Magic Mouth Was-BEN/MAAL/LIDO SWISH SWAL PRN (11:01)
--- NOTE | 2017-03-21 11:06 | PN ---
Progress Note - Progress Note Date of Service: 03/21/17 SOAP: Subjective: [][place]ley great upon waking but by 1000 exhausted and feeling poorly again. Lots of nausea and epigastric pain/burning. Hates BMX mouth wash. Left lower quad pain has recurred and very uncomfortable. Last BM "maybe 3 days ago". Frustrated with low counts. Back hurts. Medications: Acetaminophen (Tylenol Tab*) 650 mg PO Q6H PRN PRN Reason: FEVER/PAIN Last Admin: 03/19/17 15:41 Dose: 650 mg Albuterol (Ventolin 2.5 Mg/3 Ml Neb.Liz*) 2.5 mg INH Q2H PRN PRN Reason: SOB/WHEEZING Docusate Sodium (Colace Cap*) 200 mg PO BID [facility] Last Admin: 03/21/17 08:21 Dose: 200 mg Heparin Sodium (Porcine) (Heparin Vial(*)) 5,000 units SUBCUT Q8HR [facility] Last Admin: 03/21/17 05:33 Dose: 5,000 units Sodium Chloride (Ns 0.9% 1000 Ml*) 1,000 mls @ 100 mls/hr IV PER RATE [facility] Last Admin: 03/21/17 01:24 Dose: 100 mls/hr Magnesium Sulfate (Magnesium Sulf 4 Gm/100 Ml Iv*) 4,000 mg in 100 mls @ 33.333 mls/hr IVPB ONCE ONE Stop: 03/21/17 13:57 Melatonin (Melatonin (Nf)) 3 mg PO BEDTIME PRN; Protocol PRN Reason: Sleep Last Admin: 03/15/17 19:38 Dose: 3 mg Morphine Sulfate (Morphine Inj (Syringe)*) 4 mg IV Q2H PRN PRN Reason: PAIN Last Admin: 03/20/17 18:09 Dose: 4 mg Morphine Sulfate (Ms Contin(*)) 60 mg PO 0700,1900 [facility] Last Admin: 03/21/17 05:32 Dose: 60 mg Multi-Ingredient Mouthwash/Gargle (Magic Mouth Was-Sherwin/Maal/Lido*) 5 ml SWISH SWAL QID PRN PRN Reason: reflux pain Olanzapine (Zyprexa *Odt*) 10 mg PO BEDTIME [facility] Last Admin: 03/20/17 19:42 Dose: 10 mg Ondansetron HCl (Zofran Inj*) 4 mg IV Q6H PRN PRN Reason: NAUSEA Last Admin: 03/18/17 11:07 Dose: 4 mg Pantoprazole Sodium (Protonix Iv*) 40 mg IV BID [facility] Last Admin: 03/21/17 08:22 Dose: 40 mg Sucralfate (Sucralfate Susp) 1 gm PO 0630,1100,1600,2100 [facility] Last Admin: 03/21/17 10:49 Dose: Not Given Objective: [] Vital Signs Temp Pulse Resp BP Pulse Ox 98.3 F 94 14 92/72 100 03/21/17 07:16 03/21/17 10:09 03/21/17 10:09 03/21/17 07:16 03/21/17 10:09 A&Ox3, EOMI, ROACH, neuro grossly non-focal HRR, S1S2, slightly tachy, no murmur noted LS clear bilat. with even and non-labored resp. rate +BS, abd. soft, tender to LLQ No edema noted Laboratory Results - last 24 hr 03/20/17 03/20/17 03/21/17 15:50 22:05 05:30 WBC 1.0 L RBC 3.38 L Hgb 9.5 L Hct 28 L MCV 82 MCH 28 MCHC 34 RDW 16 H Plt Count 57 L MPV 7 L Neut % (Auto) 56.5 Lymph % (Auto) 20.3 L Glenn % (Auto) 22.7 H Eos % (Auto) 0 Baso % (Auto) 0.5 Absolute Neuts (auto) 0.6 L Absolute Lymphs (auto) 0.2 L Absolute Monos (auto) 0.2 Absolute Eos (auto) 0 Absolute Basos (auto) 0 Absolute Nucleated RBC 0 Nucleated RBC % 0.5 Sodium Potassium Chloride Carbon Dioxide Anion Gap BUN Creatinine Est GFR ( Amer) Est GFR (Non-Af Amer) BUN/Creatinine Ratio Glucose POC Glucose (mg/dL) 119 H 93 Calcium Magnesium Total Bilirubin AST ALT Alkaline Phosphatase Total Protein Albumin Globulin Albumin/Globulin Ratio 03/21/17 05:30 WBC RBC Hgb Hct MCV MCH MCHC RDW Plt Count MPV Neut % (Auto) Lymph % (Auto) Glenn % (Auto) Eos % (Auto) Baso % (Auto) Absolute Neuts (auto) Absolute Lymphs (auto) Absolute Monos (auto) Absolute Eos (auto) Absolute Basos (auto) Absolute Nucleated RBC Nucleated RBC % Sodium 135 Potassium 4.1 Chloride 107 Carbon Dioxide 25 Anion Gap 3 BUN 17 Creatinine 0.56 Est GFR ( Amer) 144.0 Est GFR (Non-Af Amer) 112.0 BUN/Creatinine Ratio 30.4 H Glucose 95 POC Glucose (mg/dL) Calcium 9.3 Magnesium 1.7 L Total Bilirubin 0.20 AST 11 L ALT 8 Alkaline Phosphatase 51 Total Protein 6.0 L Albumin 3.5 Globulin 2.5 Albumin/Globulin Ratio 1.4 Assessment: []57 yo female with locally advanced gastric cancer s/p combined therapy c/b significant nausea and vomiting felt to 2/2 radiation induced gastritis, however she remains very neutropenic and has recurrent LLQ pain somewhat concerning for a secondary process (?abcess vs. colitis vs. disease?). At this time I would rather err on the side of caution and evaluate her abd & pelvis with a CT scan. Case discussed with Dr. Smith (covering attending) who is in agreement). Plan: []1. CT abd/pelvis w contrast today 2. Cont. IV NS but hold TPN for now 3. Suggest trying to cont. carafate but can stop chanda. BMX 4. Replace Mg with IV and follow daily labs
[2017-03-21] MEDS ORDERED: Magnesium Sulf 4 GM/100 ML IV* 4,000 MG/100 ML BAG IVPB ONE (11:30)
[2017-03-21] MEDS ORDERED: diPHENhydraMINE PO* 50 MG PO ONE (12:51)
[2017-03-21] MEDS: Morphine INJ* 4 MG/ML 1 ML CARPUJECT IV PRN ×3 (15:10→22:10)
[2017-03-21] MEDS: LORazepam TAB(*) 1 MG PO PRN ×2 (18:24→22:11)
[2017-03-21] MEDS: CMCS: Melatonin (NF) 3 MG TAB PO PRN (20:05)
[2017-03-21] MEDS: OLANzapine TAB*ODT* 10 MG TAB PO SCH (20:05)
[2017-03-21] MEDS: predniSONE TAB* 50 MG PO SCH (20:05)
[2017-03-22] MEDS: predniSONE TAB* 50 MG PO SCH ×2 (02:04→07:59)
[2017-03-22] MEDS: Heparin VIAL(*) 5000 UNITS/ML VIAL (FIVE THOUSAND) SUBCUT SCH ×3 (05:40→20:50)
[2017-03-22] MEDS: Sucralfate SUSP 1 GM/10 ml 10 ML UDC PO SCH ×4 (05:40→20:57)
[2017-03-22] MEDS: Morphine TAB Extended Release (*) 30 MG TAB.ER PO SCH ×2 (06:05→18:09)
[2017-03-22 06:52] LABS: ABS Basophils 0 10^3/ul (0-0.2); ABS Eosinophils 0 10^3/ul (0-0.6); ABS Lymphocytes 0.1 10^3/ul (1.0-4.8); ABS Monocytes 0.1 10^3/ul (0-0.8); ABS Neutrophils 0.8 10^3/ul (1.5-7.7); ABS Nucleated RBC 0 10^3/ul; Eosinophil % 0 % (0-6); Hematocrit 26 % (35-47); Lymphocyte % 12.4 % (25-47); Mean Corpuscular HGB Conc 35 g/dl (31-36); Mean Corpuscular Hemoglobin 29 pg (27-31); Mean Corpuscular Volume 81 fL (80-97); Mean Platelet Volume 7 um3 (7.4-10.4); Nucleated Red Blood Cells % 4.2; Platelet Count 64 10^3/ul (150-450); Red Blood Count 3.15 10^6/ul (4.0-5.4); Red Cell Distribution Width 16 % (10.5-15)
[2017-03-22 06:53] LABS: EGFR Non-African American 124.7 (>60)
[2017-03-22] MEDS ORDERED: Iohexol 300* (CONTRAST) 10 ML SDV IV ONE (09:23)
--- NOTE | 2017-03-22 10:30 | RAD ---
Indication: Abdominal pain, left lower quadrant pain. Contrast: Administered 83.0 ml of OMNIPAQUE 300 mg/ml CT of the abdomen and pelvis was performed after oral and IV contrast administration. Coronal and sagittal reconstructed images were obtained. The lung bases demonstrate no pleural fluid, nodules or masses. Heart is of normal size without evidence of pericardial effusion. Liver is normal in size. No focal lesions or intrahepatic ductal dilatation is noted. The gallbladder demonstrates no calcified gallstones. No pericholecystic fluid or wall thickening is noted. The pancreas demonstrates no mass or pancreatic duct dilatation. Common duct is not dilated. The spleen is normal in size. The stomach demonstrates diffuse wall thickening of the stomach which is nondistended. Previously identified polypoid lesion in the fundus is now clearly identified on the current study. Previously identified lymphadenopathy along the lesser curvature of the stomach is no longer well demonstrated. Aorta and inferior vena cava are unremarkable. No dilated loops of bowel are noted. No retroperitoneal adenopathy is identified. CT of the pelvis demonstrates aorta and inferior vena cava to be unremarkable. No pelvic adenopathy is noted. Uterus and ovaries are unremarkable. The colon is filled with stool. There is contrast in the right colon and descending colon. No focal wall thickening of the descending colon or sigmoid colon is noted. No evidence of abnormal fluid collections are noted. Small bowel demonstrates no abnormal dilatation. The bladder is unremarkable. The bony structures are grossly unremarkable. Degenerative changes of lower lumbar spine is noted. IMPRESSION: No evidence of bowel obstruction is noted. No focal wall thickening of the colon is noted to suggest colitis. Diffuse wall thickening of the stomach which appears to BE improved since previous exam of January 19, 2017. Previously identified adenopathy is no longer present.
[2017-03-22] MEDS: Pantoprazole IV* 40 MG IV SCH ×2 (10:52→20:49)
[2017-03-22] MEDS: Docusate CAP* 100 MG PO SCH ×2 (10:53→20:48)
[2017-03-22] MEDS ORDERED: Sertraline* 50 MG TAB PO SCH ×2 (11:00→21:00)
[2017-03-22] MEDS: Levothyroxine TAB* 25 MCG TAB PO SCH (11:47)
[2017-03-22] MEDS: NS 0.9% 1000 ML* 1,000 ML IV SCH (11:48)
[2017-03-22] MEDS: LORazepam TAB(*) 1 MG PO PRN ×2 (14:35→20:51)
[2017-03-22] MEDS: Ondansetron INJ* 2 MG/ML VIAL IV PRN (21:12)
[2017-03-22] MEDS: Morphine INJ* 4 MG/ML 1 ML CARPUJECT IV PRN (21:16)
[2017-03-23] MEDS: NS 0.9% 1000 ML* 1,000 ML IV SCH (00:18)
[2017-03-23] MEDS: Morphine TAB Extended Release (*) 30 MG TAB.ER PO SCH (06:06)
[2017-03-23] MEDS: Levothyroxine TAB* 25 MCG TAB PO SCH (06:06)
[2017-03-23] MEDS: Heparin VIAL(*) 5000 UNITS/ML VIAL (FIVE THOUSAND) SUBCUT SCH ×2 (06:06→14:01)
[2017-03-23] MEDS: Sucralfate SUSP 1 GM/10 ml 10 ML UDC PO SCH ×3 (07:17→16:15)
[2017-03-23 07:33] LABS: Hematocrit 24 % (35-47); Hemoglobin 8.1 g/dl (12.0-16.0); Mean Corpuscular HGB Conc 34 g/dl (31-36); Mean Corpuscular Hemoglobin 28 pg (27-31); Mean Corpuscular Volume 82 fL (80-97); Mean Platelet Volume 8 um3 (7.4-10.4); Platelet Count 77 10^3/ul (150-450); Red Blood Count 2.89 10^6/ul (4.0-5.4); Red Cell Distribution Width 16 % (10.5-15); White Blood Count 1.5 10^3/ul (3.5-10.8)
[2017-03-23 07:53] LABS: ABS Basophils 0 10^3/ul (0-0.2); ABS Eosinophils 0 10^3/ul (0-0.6); ABS Lymphocytes 0.3 10^3/ul (1.0-4.8); ABS Monocytes 0.3 10^3/ul (0-0.8); ABS Nucleated RBC 0 10^3/ul; Eosinophil % 0 % (0-6); Lymphocyte % 18.7 % (25-47); Nucleated Red Blood Cells % 0.2
[2017-03-23 09:59] VITALS: BP 116/83
[2017-03-23] MEDS: Docusate CAP* 100 MG PO SCH (10:10)
[2017-03-23] MEDS: Pantoprazole IV* 40 MG IV SCH (10:10)
[2017-03-23] MEDS ORDERED: Sodium Phosphate ADULT ENEMA* 118 ml bottle PR ONE (10:50)
--- NOTE | 2017-03-23 10:58 | DS ---
- Discharge Summary ADMIT DATE: 03/16/2017 DISCHARGE DATE: 03/23/2017 DISCHARGE DIAGNOSES: 1. intractable nausea and vomiting 2. radiation esophagitis 3. treatment related hypokalemia 4. locally advanced gastric cancer DISCHARGE MEDICATIONS: Home Medications Medication Instructions Recorded Confirmed Type Dronabinol CAP* [Marinol CAP*] 2.5 mg PO BID 09/27/16 03/14/17 History Ondansetron ODT TAB* [Zofran 4 MG 4 mg PO Q4H PRN 09/27/16 03/14/17 History Odt TAB*] Scopolamine 1.5 mg* PATCH* 1 patch TRANSDERM Q72H 09/27/16 03/14/17 History [Transderm-Scop 1.5 mg Patch*] oxyCODONE TAB* [Roxycodone TAB 5 5 mg PO Q6H PRN 09/27/16 03/14/17 History mg*] LORazepam TAB(*) [Ativan 1 MG TAB 1 mg PO Q6H PRN #120 tab MDD 4mg 02/22/17 Rx (*)] Pantoprazole TAB (NF) [Protonix 40 mg PO QAM 03/14/17 03/14/17 History TAB (NF)] Acetaminophen TAB* [Tylenol TAB*] 650 mg PO Q6H PRN tab 03/23/17 Rx Docusate CAP* [Colace Cap*] 200 mg PO BID cap 03/23/17 Rx Levothyroxine TAB* [Synthroid 25 25 mcg PO DAILY@0600 tab 03/23/17 Rx MCG TAB*] Magic Mouth Was-GÉNESIS/MAAL/LIDO* 5 ml SWISH SWAL QID PRN #600 ml 03/23/17 Rx Morphine TAB Extended Rel(*) [Ms 60 mg PO 0700,1900 #120 tab.er MDD 03/23/17 Rx Contin(*)] 120 Sertraline* [Zoloft*] 150 mg PO BEDTIME tab 03/23/17 Rx Sucralfate SUSP 1 gm PO 0630,1100,1600,2100 udc 03/23/17 Rx DISCHARGE FOLLOW UP: 1. Dr. Talley's office Tuesday for hydration with plan for TIW hydration until swallowing unimpaired 2. Dr. Drew end of march (patient unsure of date right now but has at home) HOSPITAL COURSE: Olimpia was admitted on 03/16 with intractable nausea and vomiting after completing chemoRT for locally advanced gastric cancer the week prior. She was started on hydration and antiemetics. She did require a short course of TPN. She became acutely confused at one point, felt 2/2 zyprexa. This was held with marked improvement. This am she is able to eat without vomiting. She wants to go home where she feels she can manage her magic mouthwash and carafate better. She will come in for TIW hydration for now. Her CT A/P shows marked improvement in her disease. She has follow up with Dr. Drew at the end of March to decide if she will be a surgical candidate or not. Finally she was constipated and did accept an enema prior to discharge. >30 mins spent on this discharge >50% in face to face counseling
== END 2017-03-23 16:00 | disposition home or self-care (01) | DRG 241 ==
LOC: ED 21:31 → MED 03-14 04:57 → OBSVTOIN 03-16 12:00
PROVIDERS: ADMIT Hospitalist; ATTEND Internal Medicine Hematology & Oncology
PROC: 3E0336Z Introduction of Nutritional Substance into Peripheral Vein, Percutaneous Approach (ICD-10-PCS; principal; 2017-03-17)
DX: K29.60 Other gastritis without bleeding (principal); D61.810 Antineoplastic chemotherapy induced pancytopenia; C16.9 Malignant neoplasm of stomach, unspecified; K20.8 Other esophagitis; E53.8 Deficiency of other specified B group vitamins; E03.9 Hypothyroidism, unspecified; R44.3 Hallucinations, unspecified; Y84.2 Radiological procedure and radiotherapy as the cause of abnormal reaction of the patient, or of later complication, without mention of misadventure at the time of the procedure; Y92.239 Unspecified place in hospital as the place of occurrence of the external cause; E87.6 Hypokalemia; R41.0 Disorientation, unspecified; T43.595A Adverse effect of other antipsychotics and neuroleptics, initial encounter; K59.00 Constipation, unspecified; Z92.21 Personal history of antineoplastic chemotherapy; Z92.3 Personal history of irradiation; K21.9 Gastro-esophageal reflux disease without esophagitis; F32.9 Major depressive disorder, single episode, unspecified; Z91.030 Bee allergy status; Z91.040 Latex allergy status; Z88.7 Allergy status to serum and vaccine; Z91.048 Other nonmedicinal substance allergy status; Z88.8 Allergy status to other drugs, medicaments and biological substances; Z87.891 Personal history of nicotine dependence; F12.90 Cannabis use, unspecified, uncomplicated; Z80.1 Family history of malignant neoplasm of trachea, bronchus and lung; Z81.1 Family history of alcohol abuse and dependence; T45.1X5A Adverse effect of antineoplastic and immunosuppressive drugs, initial encounter; Y92.9 Unspecified place or not applicable; F41.9 Anxiety disorder, unspecified
CPT/HCPCS: 36415; 74177; 80048; 80053; 82150; 82465; 82565; 83605; 83690; 83735; 84100; 84134; 84478; 84520; 85025; 85610; 85730; 96374; 96375; 99232; 99233; 99239; 99284; A9270-GY; G0378; J0780; J1100; J1642; J1644; J2060; J2270; J2405; J2765; J3360; J3475; J3480; J7512; Q9967

== ENCOUNTER → 2017-07-06 13:15 | Emergency (ER) | payer BC ==
[~2017-07-06 13:15] MED LIST: hydrOXYzine HCL TAB* 50 MG PO ONE
[2017-07-06 16:41] VITALS: BP 140/92
--- NOTE | 2017-07-06 18:36 | ED ---
Karen Yusuf Tenzin, scribed for Xavi Maldonado MD on 07/06/17 at 1337 . Allergic Reaction/Systemic - HPI Summary HPI Summary: Pt is a 57 years old female transferred from [facility] to ED after showing symptoms of allergic reactions during her chemo treatment today. She complains of scratchy throats, chest tightness, itching in head and periodic coughs. She also notes "hot flashes and shakes". - History of Current Complaint Chief Complaint: EDAllergicReaction Time Seen by Provider: 07/06/17 13:16 Hx Obtained From: Patient Onset/Duration: Sudden Onset Timing: Constant Severity Initially: Moderate Severity Currently: Moderate Pain Intensity: 7 Pain Scale Used: 0-10 Numeric Associated Signs And Symptoms: Positive: Cough Wheezing - periodic coughs only, Other: - Chest tightness, hot flashes, shakes, scratchy throat and itching head - Allergies/Home Medications Allergies/Adverse Reactions: Allergies Allergy/AdvReac Type Severity Reaction Status Date / Time bee pollen Allergy Shortness Verified 05/09/17 10:35 of Breath bee venom protein (honey bee) Allergy Shortness Verified 05/09/17 10:35 of Breath Influenza Virus Vaccines Allergy Anaphylatic Verified 05/09/17 10:35 Shock latex Allergy Hives/Diff. Verified 05/09/17 10:35 Breathing/I tching Latex, Natural Rubber Allergy Hives/Diff. Verified 05/09/17 10:35 Breathing/I tching FLU SHOT Allergy Severe Anaphylatic Uncoded 05/09/17 10:35 Shock ANTS Allergy Hives Uncoded 05/09/17 10:35 BEES Allergy SWEELING, Uncoded 05/09/17 10:35 SOB SULFATES Allergy HIVES, SOB Uncoded 05/09/17 10:35 Home Medications: Home Medications Acetaminophen [Acetaminophen Extra Strength] 500 mg PO BID 07/06/17 [History Confirmed 07/06/17] Cyanocobalamin INJ * [Vitamin B12 INJ *] 1,000 mcg IM MONTHLY 07/06/17 [History Confirmed 07/06/17] Docusate CAP* [Colace Cap*] 200 mg PO QAM 07/06/17 [History Confirmed 07/06/17] Dronabinol CAP* [Marinol CAP*] 2.5 mg PO BID PRN 07/06/17 [History Confirmed ] Levothyroxine TAB* [Synthroid 25 MCG TAB*] 25 mcg PO DAILY 07/06/17 [History Confirmed 07/06/17] Magnesium Oxide 500 mg PO BID 07/06/17 [History Confirmed 07/06/17] OLANzapine TAB* [Zyprexa 10 MG TAB*] 10 mg PO BEDTIME 07/06/17 [History Confirmed 07/06/17] Potassium Chloride [Klor-Con] 20 meq PO DAILY 07/06/17 [History Confirmed ] PMH/Surg Hx/FS Hx/Imm Hx Endocrine/Hematology History: Reports: Hx Thyroid Disease, Hx Anemia - VIT B 12 SHOTS Denies: Hx Diabetes Cardiovascular History: Denies: Hx Hypertension, Hx Pacemaker/ICD, Other Cardiovascular Problems/ Disorders History: Denies: Hx Renal Disease Musculoskeletal History: Reports: Other Musculoskeletal History - hx of left knee injury several yrs ago starting. Sensory History: Reports: Hx Contacts or Glasses Denies: Hx Hearing Aid Opthamlomology History: Reports: Hx Contacts or Glasses Neurological History: Reports: Other Neuro Impairments/Disorders - Current neuropathic pain Psychiatric History: Reports: Hx Anxiety, Hx Depression - ON MEDS Denies: Hx Panic Disorder - Cancer History Cancer Type, Location and Year: STOMACH CA - Surgical History Surgery Procedure, Year, and Place: 1995, OVARIAN CYST , [facility] [place] - OVARY REMOVAL;. TONSILECTOMY, AGE 6,[facility] [place];. THYROID, 2000, [facility] [place];. HEMMORRHOIDECTOMY, 2003, [facility] [place];. C SPINE, 2009, [facility] [place];. KNEE SURGERY;. ABDOMINAL SURGERY FOR STOMACH CANCER REMOVAL Hx Anesthesia Reactions: No Infectious Disease History: No Infectious Disease History: Denies: Traveled Outside the [place] in Last 30 Days - Family History Known Family History: Positive: Other - Patient denies relevant FHx - Social History Alcohol Use: None Hx Substance Use: No Substance Use Type: Reports: Marijuana, Prescribed Substance Use Comment - Amount & Last Used: occas Hx Tobacco Use: Yes Smoking Status (MU): Former Smoker Type: Cigarettes Have You Smoked in the Last Year: No Review of Systems Positive: Other - itching head, heat flashes and shakes. Positive: Other - scratchy throat Positive: Other - Chest tightness Positive: Cough - periodic coughs All Other Systems Reviewed And Are Negative: Yes Physical Exam - Summary Physical Exam Summary: Appearance: The patient is well-nourished in no acute distress and in no acute pain. Skin: The skin is warm and dry and skin color reflects adequate perfusion. HEENT: The head is normocephalic and atraumatic. The pupils are equal and reactive. The conjunctivae are clear and without drainage. Nares are patent and without drainage. Mouth reveals moist mucous membranes and the throat is without erythema and exudate. The external ears are intact. The ear canals are patent and without drainage. The tympanic membranes are intact. Neck: the neck is supple with full range of motion and non-tender. There are no carotid bruits. There is no neck vein distension. Respiratory: Chest is non-tender. Lungs are clear to auscultation and breath sounds are symmetrical and equal. Cardiovascular: Heart is regular rate and rhythm. There is no murmur or rub auscultated. There is no peripheral edema and pulses are symmetrical and equal. Abdomen: The abdomen is soft and non-tender. There are normal bowel sounds heard in all four quadrants and there is no organomegaly palpated. Musculoskeletal: There is no back tenderness noted. Extremities are non-tender with full range of motion. There is good capillary refill. There is no peripheral edema or calf tenderness elicited. Neurological: Patient is alert and oriented to person, place and time. The patient has symmetrical motor strength in all four extremities. Cranial nerves are grossly intact. Deep tendon reflexes are symmetrical and equal in all four extremities. Psychiatric: The patient has an appropriate affect and does not exhibit any anxiety or depression. Triage Information Reviewed: Yes Vital Signs On Initial Exam: Initial Vitals Temp Pulse Resp BP Pulse Ox 98.4 F 99 23 133/78 99 07/06/17 13:16 07/06/17 13:16 07/06/17 13:16 07/06/17 13:16 07/06/17 13:16 Vital Signs Reviewed: Yes Diagnostics - Vital Signs Vital Signs Temp Pulse Resp BP Pulse Ox 07/06/17 13:16 98.4 F 99 23 133/78 99 - Laboratory Lab Statement: Any lab studies that have been ordered have been reviewed, and results considered in the medical decision making process. Allergic Reaction Course/Dx - Course Course Of Treatment: Ms. Torres presented from the oncology suite with frequent coughing and a dry irritated throat. She was getting a med that she had had several times in the past but the most recent time she also had another reaction. She got multiple meds over there before coming here. I watched her for a few hours with onlhy the addition of hydroxyzine for its additional antihistaminee properties as well as anxiolytic. She did fine and wanted to go home. I considered the possibility of a very atypical presentation of superior vena cava syndrome given that she has a PIC line and unusual throat symptoms. There is no evidence for it at this time. - Diagnoses Provider Diagnoses: Medication reaction Discharge - Sign-Out/Discharge Documenting (check all that apply): Discharge/Admit/Transfer - Discharge Plan Condition: Stable Disposition: HOME Referrals: Crystal Roland NP [Primary Care Provider] - 3 Days Additional Instructions: Follow up with your oncologist in three days. Return to the emergency department for any new or worsening symptoms. - Billing Disposition and Condition Condition: STABLE Disposition: HOME The documentation as recorded by the Karen ceja Tenzin accurately reflects the service I personally performed and the decisions made by me, Xavi Maldonado MD.
== END | disposition home or self-care (01) ==
LOC: ED 13:15
DX: L29.9 Pruritus, unspecified (principal); R07.0 Pain in throat; R07.89 Other chest pain; R05 Cough; T50.905A Adverse effect of unspecified drugs, medicaments and biological substances, initial encounter; Y92.531 Health care provider office as the place of occurrence of the external cause; C16.1 Malignant neoplasm of fundus of stomach; E07.9 Disorder of thyroid, unspecified; D64.9 Anemia, unspecified; F41.9 Anxiety disorder, unspecified; F32.9 Major depressive disorder, single episode, unspecified; Z88.2 Allergy status to sulfonamides; Z88.7 Allergy status to serum and vaccine; Z91.030 Bee allergy status; Z91.040 Latex allergy status; Z87.891 Personal history of nicotine dependence
CPT/HCPCS: 99282; A9270-GY; J1642

== ENCOUNTER → 2018-01-21 10:06 | Emergency (ER) | payer BC ==
[~2018-01-21 10:06] MED LIST changes: +LORazepam INJ* 2 MG/ML 1 ML VIAL IV PUSH ONE; +Morphine VIAL* 4 MG/ML VIAL (1 ml vial) IV ONE; +NS 0.9% 1000 ML* 1,000 ML IV ONE; +Ondansetron INJ* 2 MG/ML VIAL IV ONE; -hydrOXYzine HCL TAB* 50 MG PO ONE
--- NOTE | 2018-01-21 10:40 | ED ---
Abdominal Pain/Female - HPI Summary HPI Summary: Patient is a 57 y/o F w/ c/o abdominal pain, N/V and anxiety for the past eight hours. Sudden onset of Sx, she states that before this she was "fine". She states she has been vomiting undigested food. Patient reports Hx of stomach cancer and stomach hernia. Patient is being followed by Dr. Diaz, scheduled to start chemotherapy in three days. Dr. 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 Patient was advised to come to ED for further workup. On triage pain is rated 10/10, nothing is noted to aggravate/alleviate Sx. Home medications and allergies are reviewed. - History of Current Complaint Chief Complaint: EDNauseaVomitDiarrh Stated Complaint: VOMITING FOR 8 HOURS Time Seen by Provider: 01/21/18 10:15 Hx Obtained From: Patient Onset/Duration: Lasting Hours - 8 hours, Still Present Timing: Hours - past 8 hours Severity Currently: Severe - 8/10 Pain Intensity: 8 Pain Scale Used: 0-10 Numeric - 8/10 Location: Diffuse Aggravating Factor(s): Nothing Alleviating Factor(s): Nothing Associated Signs and Symptoms: Positive: Nausea, Vomiting, Other: - anxiety Allergies/Adverse Reactions: Allergies Allergy/AdvReac Type Severity Reaction Status Date / Time bee pollen Allergy Shortness Verified 01/21/18 10:11 of Breath bee venom protein (honey bee) Allergy Shortness Verified 01/21/18 10:11 of Breath Influenza Virus Vaccines Allergy Anaphylatic Verified 01/21/18 10:11 Shock latex Allergy Hives/Diff. Verified 01/21/18 10:11 Breathing/I tching Latex, Natural Rubber Allergy Hives/Diff. Verified 01/21/18 10:11 Breathing/I tching ants Allergy Hives Uncoded 01/21/18 10:11 sulfates Allergy Hives Uncoded 01/21/18 10:11 PMH/Surg Hx/FS Hx/Imm Hx Endocrine/Hematology History: Reports: Hx Thyroid Disease, Hx Anemia - VIT B 12 SHOTS Denies: Hx Diabetes Cardiovascular History: Denies: Hx Hypertension, Hx Pacemaker/ICD, Other Cardiovascular Problems/ Disorders History: Denies: Hx Renal Disease Musculoskeletal History: Reports: Other Musculoskeletal History - hx of left knee injury several yrs ago starting. Sensory History: Reports: Hx Contacts or Glasses Denies: Hx Hearing Aid Opthamlomology History: Reports: Hx Contacts or Glasses Neurological History: Reports: Other Neuro Impairments/Disorders - Current neuropathic pain Psychiatric History: Reports: Hx Anxiety, Hx Depression - ON MEDS Denies: Hx Panic Disorder - Cancer History Cancer Type, Location and Year: STOMACH CA - Surgical History Surgery Procedure, Year, and Place: 1995, OVARIAN CYST , [facility] [place] - OVARY REMOVAL;. TONSILECTOMY, AGE 6,[facility] [place];. THYROID, 2000, [facility] [place];. HEMMORRHOIDECTOMY, 2003, [facility] [place];. C SPINE, 2009, [facility] [place];. KNEE SURGERY;. ABDOMINAL SURGERY FOR STOMACH CANCER REMOVAL Hx Anesthesia Reactions: No Infectious Disease History: No Infectious Disease History: Denies: Traveled Outside the [place] in Last 30 Days - Family History Known Family History: Positive: Other - FMHx of stomach cancer denied, father had bone and lung cancer - Social History Alcohol Use: None Hx Substance Use: No Substance Use Type: Reports: Marijuana, Prescribed Substance Use Comment - Amount & Last Used: occas Hx Tobacco Use: Yes Smoking Status (MU): Former Smoker Type: Cigarettes Have You Smoked in the Last Year: No Review of Systems Negative: Fever - on vitals, temp is 97.6 F Positive: Abdominal Pain, Vomiting, Nausea Positive: Anxious All Other Systems Reviewed And Are Negative: Yes Physical Exam - Summary Physical Exam Summary: VITAL SIGNS: Reviewed. GENERAL: Patient is a well-developed and nourished female who is lying comfortable in the stretcher. Patient is not in any acute respiratory distress. HEAD AND FACE: Normocephalic and atraumatic. EYES: PERRLA, EOMI x 2, No injected conjunctiva. EARS: Hearing grossly intact. Ear canals and tympanic membranes are WNL. MOUTH: Oropharynx within normal limits. NECK: Supple, trachea is midline, no adenopathy, no JVD. CHEST: Symmetric, no tenderness at palpation LUNGS: Clear to auscultation bilaterally. No wheezing or crackles. CVS: RRR, S1 and S2 present, no murmurs or gallops appreciated. ABDOMEN: Soft, non-tender. No signs of distention. Positive bowel sounds. No rebound no guarding, and no masses palpated. No abdominal bruit or pulsations. EXTREMITIES: FROM in all major joints, no edema, no cyanosis or clubbing. NEURO: Alert and oriented x 3. No acute neurological deficits. Speech is normal. SKIN: Dry and warm Triage Information Reviewed: Yes Vital Signs On Initial Exam: Initial Vitals Temp Pulse Resp BP Pulse Ox 97.6 F 116 18 129/91 97 01/21/18 10:12 01/21/18 10:12 01/21/18 10:12 01/21/18 10:12 01/21/18 10:12 Vital Signs Reviewed: Yes Diagnostics - Vital Signs Vital Signs Temp Pulse Resp BP Pulse Ox 01/21/18 10:12 97.6 F 116 18 129/91 97 - Laboratory Result Diagrams: 01/21/18 11:00 01/21/18 11:00 Lab Statement: Any lab studies that have been ordered have been reviewed, and results considered in the medical decision making process. - Radiology ABDOMEN X-RAY Radiology Interpretation Completed By: Radiologist Summary of Radiographic Findings: IMPRESSION: MILD GASTRIC DISTENTION AND MILDLY DISTENDED BOWEL IN THE MIDLINE POSSIBLY. REPRESENTING A PARTIAL SMALL BOWEL OBSTRUCTION. THIS REPORT WAS REVIEWED BY ED PHYSICIAN. - EKG 1034 Cardiac Rate: NL - RATE OF 94 BPM EKG Rhythm: Sinus Rhythm EKG Comparison: No Significant Change - SIMILAR TO 01/19/18 EKG Summary of EKG Findings: EKG SHOWED SINUS RHYTHM WITH RATE OF 94 BPM, NO ST ELEVATION, SIMILAR TO EKG TAKEN 01/19/18. Re-Evaluation - Re-Evaluation First Eval Re-Evaluation Time: 14:30 Comment: I discussed all the findings and test results with the patient. Patient was instructed to return to the emergency room immediately if any of the symptoms return or worsens. Plan of care was discussed with the patient and understands and agrees. All questions were answered at patient satisfaction. There were no further complaints or concerns. Lung exam before discharge: CTA B /L. Good air exchange. No wheezing or crackles heard. CVS: S1 and S2 present. No murmurs appreciated. Patient is alert and oriented x 3. Patient is hemodynamically stable. Patient will be discharged home with follow up PCP in the next 2-3 days Abdominal Pain Fem Course/Dx - Course Course Of Treatment: Patient is a 57 y/o F w/ c/o abdominal pain, N/V and anxiety for the past eight hours. Sudden onset of Sx, she states that before this she was "fine". She states she has been vomiting undigested food. Patient reports Hx of stomach cancer and stomach hernia. Patient is being followed by Dr. Diaz, scheduled to start chemotherapy in three days. Dr. 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 Patient was advised to come to ED for further workup. On triage pain is rated 10 /10, nothing is noted to aggravate/alleviate Sx. Home medications and allergies are reviewed. Blood work without any significant abnormality except for hemoglobin 11, glucose of 110, CRP of 9.7. Abdominal x-ray impression: Mild gastric distention and mildly distended bowel in the midline. Possibility representing a partial small bowel obstruction. In the ED course the patient was given IV fluids, she was given Zofran for nausea and vomiting and morphine 2 for pain. At this time I discussed my physical exam, findings and test results with Dr. Diaz from oncology and she recommends for the patient to be kept in the ER for additional time to see if the symptoms improved. The patient continues to be hemodynamically stable. Dr. Diaz from oncology came and assessed the patient and since the patient is now is tolerating some by mouth she recommends for the patient to be discharged home with follow-up with PCP. The patient is hemodynamically stable alert and oriented 3. I discussed all the findings and test results with the patient. Patient was instructed to return to the emergency room immediately if any of the symptoms return or worsens. Plan of care was discussed with the patient and understands and agrees. All questions were answered at patient satisfaction. There were no further complaints or concerns. Lung exam before discharge: CTA B/L. Good air exchange. No wheezing or crackles heard. CVS: S1 and S2 present. No murmurs appreciated. Patient is alert and oriented x 3. Patient is hemodynamically stable. Patient will be discharged home with follow up PCP in the next 2-3 days - Diagnoses Provider Diagnoses: Nausea and vomiting - Provider Notifications Discussed Care Of Patient With: Tanja Diaz Time Discussed With Above Provider: 11:57 Instructed by Provider To: Other - Patient's case was discussed with Dr. Diaz at 1157. Dr. Diaz recommends keeping patient in ED to see if Sx improve. 1300 - Dr. Diaz came to ED to evaluate patient. Since the patient is now is tolerating some by mouth she recommends for the patient to be discharged home with follow-up with PCP. Discharge - Sign-Out/Discharge Documenting (check all that apply): Patient Departure - discharge - Discharge Plan Condition: Stable Disposition: HOME Patient Education Materials: Acute Nausea and Vomiting (ED) Referrals: Tanja Diaz MD [Medical Doctor] - 3 Days Additional Instructions: RETURN TO ED FOR ANY NEW OR WORSENING SYMPTOMS. FOLLOW UP WITH DR. DIAZ IN 2 -3 DAYS - Billing Disposition and Condition Condition: STABLE Disposition: Home - Attestation Statements Document Initiated by Scribe: Yes Documenting Scribe: MICHAEL MADRID Provider For Whom Veronicaibhalima is Documenting (Include Credential): JANEE GALLARDO MD Scribe Attestation: I, MICHAEL MADRID , scribed for JANEE GALLARDO MD on 01/21/18 at 1837. Scribe Documentation Reviewed: Yes Provider Attestation: The documentation as recorded by the MICHAEL ceja accurately reflects the service I personally performed and the decisions made by me, JANEE GALLARDO MD Status of Scribe Document: Viewed
[2018-01-21 11:11] LABS: Hematocrit 35 % (35-47); Mean Corpuscular HGB Conc 32 g/dl (31-36); Mean Corpuscular Hemoglobin 22 pg (27-31); Mean Corpuscular Volume 70 fL (80-97); Mean Platelet Volume 6.7 fL (7.4-10.4); Platelet Count 424 10^3/ul (150-450); Red Blood Count 4.99 10^6/ul (4.00-5.40); Red Cell Distribution Width 22 % (10.5-15); White Blood Count 4.9 10^3/ul (3.5-10.8)
[2018-01-21 11:12] LABS: ABS Basophils 0 10^3/ul (0-0.2); ABS Eosinophils 0 10^3/ul (0-0.6); ABS Lymphocytes 0.4 10^3/ul (1.0-4.8); ABS Monocytes 0.4 10^3/ul (0-0.8); ABS Nucleated RBC 0 10^3/ul; Eosinophil % 0 %; Lymphocyte % 8.2 %; Nucleated Red Blood Cells % 0
[2018-01-21 11:33] LABS: EGFR Non-African American 99.6 (>60)
[2018-01-21 13:08] LABS: Urine Appearance Clear; Urine Blood Negative (Negative); Urine Color Yellow; Urine Ketones 1+ (Negative); Urine Protein 2+(100 mg/dL) (Negative); Urine Red Blood Cell Trace(0-2/hpf) (Absent); Urine Specific Gravity 1.019 (1.010-1.030); Urine Urobilinogen Negative (Negative); Urine White Blood Cell Trace(0-5/hpf) (Absent)
[2018-01-21 14:42] VITALS: BP 139/99
== END | disposition home or self-care (01) ==
LOC: ED 10:06
DX: R11.2 Nausea with vomiting, unspecified (principal); R10.9 Unspecified abdominal pain; Z85.028 Personal history of other malignant neoplasm of stomach; F41.9 Anxiety disorder, unspecified; Z87.891 Personal history of nicotine dependence
CPT/HCPCS: 36415; 74019; 80053; 81003; 81015; 82150; 82550; 83605; 83690; 83735; 85025; 86140; 87086; 93005; 96361; 96374; 96375; 99283; 99284; J1642; J2060; J2270; J2405

== ENCOUNTER 2018-01-31 14:55 | Inpatient (IN) | payer BC ==
[~2018-01-31 14:55] MED LIST changes: -LORazepam INJ* 2 MG/ML 1 ML VIAL IV PUSH ONE; +Morphine INJ* 2 MG/ML 1 ML SYRINGE (TWO MG - NEW SYRINGE VERSION) ONE; -Morphine VIAL* 4 MG/ML VIAL (1 ml vial) IV ONE; -NS 0.9% 1000 ML* 1,000 ML IV ONE; -Ondansetron INJ* 2 MG/ML VIAL IV ONE
[2018-01-31] MEDS ORDERED: Acetaminophen TAB* 325 MG PO PRN (14:58)
[2018-01-31] MEDS: NS 0.9% 1000 ML* 1,000 ML IV SCH (16:17)
[2018-01-31] MEDS: Ondansetron INJ* 2 MG/ML VIAL IV PRN ×2 (16:17→20:30)
[2018-01-31] MEDS: Morphine VIAL* 4 MG/ML VIAL (1 ml vial) IV PRN ×2 (16:17→20:35)
[2018-01-31] MEDS ORDERED: Scopolamine 1.5 mg* PATCH TRANSDERM SCH (17:00)
[2018-01-31] MEDS: Magic M W2 Ben/Maal/Nyst/Lido* 240 ML MOUTHWASH (alt formulation) SWISH SPIT SCH ×2 (17:24→21:22)
[2018-01-31] MEDS ORDERED: Mineral Oil ENEMA* 1 BOTTLE PR ONE (18:06)
[2018-01-31] MEDS: LORazepam INJ* 2 MG/ML 1 ML VIAL IV PUSH PRN (20:36)
[2018-01-31] MEDS: Sertraline* 50 MG TAB PO SCH (21:22)
[2018-01-31] MEDS: Morphine TAB Extended Release (*) 30 MG TAB.ER PO SCH (21:22)
[2018-02-01] MEDS: Morphine VIAL* 4 MG/ML VIAL (1 ml vial) IV PRN ×4 (02:14→23:42)
[2018-02-01] MEDS: LORazepam INJ* 2 MG/ML 1 ML VIAL IV PUSH PRN ×3 (02:15→23:41)
[2018-02-01] MEDS: Levothyroxine TAB* 25 MCG TAB PO SCH (05:43)
[2018-02-01] MEDS: NS 0.9% 1000 ML* 1,000 ML IV SCH (05:56)
[2018-02-01 06:21] LABS: ABS Basophils 0 10^3/ul (0-0.2); ABS Eosinophils 0 10^3/ul (0-0.6); ABS Lymphocytes 0.4 10^3/ul (1.0-4.8); ABS Monocytes 0.2 10^3/ul (0-0.8); ABS Nucleated RBC 0 10^3/ul; Eosinophil % 0 %; Hematocrit 27 % (35-47); Hemoglobin 8.4 g/dl (12.0-16.0); Mean Corpuscular HGB Conc 32 g/dl (31-36); Mean Corpuscular Hemoglobin 22 pg (27-31); Mean Corpuscular Volume 71 fL (80-97); Mean Platelet Volume 6.2 fL (7.4-10.4); Nucleated Red Blood Cells % 0.1; Platelet Count 245 10^3/ul (150-450); Red Blood Count 3.73 10^6/ul (4.00-5.40); Red Cell Distribution Width 21 % (10.5-15); White Blood Count 1.6 10^3/ul (3.5-10.8)
[2018-02-01 06:33] LABS: EGFR Non-African American 133.8 (>60)
[2018-02-01] MEDS: BuPROPion XL* 150 MG TAB.XL PO SCH (08:33)
[2018-02-01] MEDS: Morphine TAB Extended Release (*) 30 MG TAB.ER PO SCH ×2 (08:33→20:41)
[2018-02-01] MEDS: Magic M W2 Ben/Maal/Nyst/Lido* 240 ML MOUTHWASH (alt formulation) SWISH SPIT SCH ×4 (08:34→20:40)
[2018-02-01] MEDS: Ondansetron INJ* 2 MG/ML VIAL IV PRN ×2 (08:34→20:41)
[2018-02-01] MEDS ORDERED: Mineral Oil ENEMA* 1 BOTTLE PR ONE (10:19)
--- NOTE | 2018-02-01 10:25 | PN ---
Progress Note - Progress Note Date of Service: 02/01/18 SOAP: Subjective: still w significant abdominal pain which she relates to not being able to have a BM Objective: Vital Signs Temp Pulse Resp BP Pulse Ox 98.1 F 91 18 124/76 97 02/01/18 02:17 02/01/18 02:17 02/01/18 08:33 02/01/18 02:17 02/01/18 02:17 lying on side, uncomfortable s1 s2 nl cta bl tender to palpation throughout good rectal tone, large stool ball palpated, some thick, paste-like stool extracted no le edema Laboratory Results - last 24 hr 02/01/18 02/01/18 05:20 05:20 WBC 1.6 L RBC 3.73 L Hgb 8.4 L Hct 27 L MCV 71 L MCH 22 L MCHC 32 RDW 21 H Plt Count 245 MPV 6.2 L Neut % (Auto) 61.8 Lymph % (Auto) 24.0 [place] % (Auto) 13.6 Eos % (Auto) 0 Baso % (Auto) 0.6 Absolute Neuts (auto) 1.0 L Absolute Lymphs (auto) 0.4 L Absolute Monos (auto) 0.2 Absolute Eos (auto) 0 Absolute Basos (auto) 0 Absolute Nucleated RBC 0 Nucleated RBC % 0.1 Sodium 136 Potassium 3.6 Chloride 107 Carbon Dioxide 23 Anion Gap 6 BUN 12 Creatinine 0.48 L Est GFR ( Amer) 161.9 Est GFR (Non-Af Amer) 133.8 BUN/Creatinine Ratio 25.0 H Glucose 83 Calcium 8.5 L Total Bilirubin 0.20 AST 41 H ALT 52 Alkaline Phosphatase 182 H Troponin I 0.00 Total Protein 5.3 L Albumin 3.0 L Globulin 2.3 Albumin/Globulin Ratio 1.3 Acetaminophen (Tylenol Tab*) 650 mg PO Q4H PRN PRN Reason: pain/headache/fever Bupropion HCl (Wellbutrin Xl *) 150 mg PO DAILY DARREN; Protocol Last Admin: 02/01/18 08:33 Dose: 150 mg Heparin Sodium (Porcine) (Heparin Flush Port ([place])) 5 ml FLUSH DAILY DARREN; Protocol Last Admin: 02/01/18 08:34 Dose: Not Given Sodium Chloride (Ns 0.9% 1000 Ml*) 1,000 mls @ 75 mls/hr IV PER RATE DARREN Last Admin: 02/01/18 05:56 Dose: 75 mls/hr Lactulose (Lactulose*) 30 ml PO TID [facility] Last Admin: 02/01/18 08:33 Dose: 30 ml Levothyroxine Sodium (Synthroid Tab*) 25 mcg PO DAILY@0600 [facility] Last Admin: 02/01/18 05:43 Dose: 25 mcg Lorazepam (Ativan Inj*) 0.5 mg IV PUSH Q4H PRN PRN Reason: ANXIETY Last Admin: 02/01/18 02:15 Dose: 0.5 mg Mineral Oil (Fleet Mineral Oil Enema*) 1 bottle DC ONCE ONE Stop: 02/01/18 10:20 Morphine Sulfate (Morphine Vial*) 5 mg IV Q4H PRN PRN Reason: PAIN Last Admin: 02/01/18 06:16 Dose: 5 mg Morphine Sulfate (Ms Contin(*)) 30 mg PO BID [facility] Last Admin: 02/01/18 08:33 Dose: 30 mg Multi-Ingredient Mouthwash/Gargle (Magic M W2 Sherwin/Maal/Nyst/Lido*) 10 ml SWISH SPIT QID [facility] Last Admin: 02/01/18 08:34 Dose: 10 ml Ondansetron HCl (Zofran Inj*) 4 mg IV Q4H PRN PRN Reason: NAUSEA Last Admin: 02/01/18 08:34 Dose: 4 mg Pharmacy Profile Note (Scopolamine Patch Remove*) 1 note PATCH OFF Q72H [facility] Scopolamine (Transderm-Scop 1.5 Mg Patch*) 1 patch TRANSDERM Q72H [facility] Last Admin: 01/31/18 17:25 Dose: 1 patch Sertraline HCl (Zoloft*) 150 mg PO BEDTIME [facility] Last Admin: 01/31/18 21:22 Dose: 150 mg Assessment: 57 yo F w metastatic gastric cancer on palliative FOLFIRI admitted with abdominal pain and found to have severe obstipation. I was able to manually disimpact some of the stool today, though may need another procedure (perhaps surgical consultation) if she does not pass more as I was barely able to reach what felt to be a large stool ball. Plan: -repeat mineral oil enema -may need repeat disimpaction, if so will consult surgery -pancytopenia related to chemotherapy
[2018-02-01] MEDS: Lidocaine 2% JELLY* 6 ML JELLY TOPICAL SCH ×2 (15:22→21:16)
[2018-02-01] MEDS ORDERED: Morphine VIAL* 4 MG/ML VIAL (1 ml vial) IV ONE (15:29)
[2018-02-01] MEDS: Sertraline* 50 MG TAB PO SCH (20:40)
[2018-02-02] MEDS: NS 0.9% 1000 ML* 1,000 ML IV SCH ×2 (00:17→18:30)
[2018-02-02] MEDS: Morphine VIAL* 4 MG/ML VIAL (1 ml vial) IV PRN ×5 (04:12→23:27)
[2018-02-02] MEDS: Ondansetron INJ* 2 MG/ML VIAL IV PRN ×2 (04:13→10:20)
[2018-02-02] MEDS: Levothyroxine TAB* 25 MCG TAB PO SCH (05:22)
[2018-02-02 05:50] LABS: ABS Basophils 0 10^3/ul (0-0.2); ABS Eosinophils 0 10^3/ul (0-0.6); ABS Lymphocytes 0.3 10^3/ul (1.0-4.8); ABS Monocytes 0.3 10^3/ul (0-0.8); ABS Neutrophils 1.2 10^3/ul (1.5-7.7); ABS Nucleated RBC 0 10^3/ul; Eosinophil % 0 %; Hematocrit 25 % (35-47); Lymphocyte % 17.7 %; Mean Corpuscular HGB Conc 32 g/dl (31-36); Mean Corpuscular Hemoglobin 23 pg (27-31); Mean Corpuscular Volume 72 fL (80-97); Mean Platelet Volume 6.1 fL (7.4-10.4); Nucleated Red Blood Cells % 0.2; Platelet Count 228 10^3/ul (150-450); Red Cell Distribution Width 21 % (10.5-15); White Blood Count 1.8 10^3/ul (3.5-10.8)
[2018-02-02 05:58] LABS: EGFR Non-African American 147.9 (>60)
[2018-02-02] MEDS: Lidocaine 2% JELLY* 6 ML JELLY TOPICAL SCH ×3 (08:19→20:06)
[2018-02-02] MEDS: BuPROPion XL* 150 MG TAB.XL PO SCH (08:19)
[2018-02-02] MEDS: Morphine TAB Extended Release (*) 30 MG TAB.ER PO SCH ×2 (08:20→20:06)
[2018-02-02] MEDS: Magic M W2 Ben/Maal/Nyst/Lido* 240 ML MOUTHWASH (alt formulation) SWISH SPIT SCH ×4 (08:20→20:06)
--- NOTE | 2018-02-02 09:51 | PN ---
Progress Note - Progress Note Date of Service: 02/02/18 SOAP: Subjective: [She had a large amount of stool overnight. She unfortunately was incontinent during sleep. Her abd pain is slightly improved. She reports having some appetite. Her rectum is extremely tender.] Objective: [ Vital Signs Temp Pulse Resp BP Pulse Ox 98.1 F 89 18 112/73 99 02/02/18 07:56 02/02/18 07:56 02/02/18 08:20 02/02/18 07:56 02/02/18 07:56 Acetaminophen (Tylenol Tab*) 650 mg PO Q4H PRN PRN Reason: pain/headache/fever Bupropion HCl (Wellbutrin Xl *) 150 mg PO DAILY [facility]; Protocol Last Admin: 02/02/18 08:19 Dose: 150 mg Heparin Sodium (Porcine) (Heparin Flush Port (Ivad)) 5 ml FLUSH DAILY [facility]; Protocol Last Admin: 02/02/18 08:33 Dose: Not Given Sodium Chloride (Ns 0.9% 1000 Ml*) 1,000 mls @ 75 mls/hr IV PER RATE [facility] Last Admin: 02/02/18 00:17 Dose: 75 mls/hr Lactulose (Lactulose*) 30 ml PO TID [facility] Last Admin: 02/02/18 08:19 Dose: 30 ml Levothyroxine Sodium (Synthroid Tab*) 25 mcg PO DAILY@0600 [facility] Last Admin: 02/02/18 05:22 Dose: 25 mcg Lidocaine HCl (Lidocaine 2% Jelly*) 1 applic TOPICAL TID [facility] Last Admin: 02/02/18 08:19 Dose: 1 applic Lorazepam (Ativan Inj*) 0.5 mg IV PUSH Q4H PRN PRN Reason: ANXIETY Last Admin: 02/01/18 23:41 Dose: 0.5 mg Morphine Sulfate (Morphine Vial*) 5 mg IV Q4H PRN PRN Reason: PAIN Last Admin: 02/02/18 08:20 Dose: 5 mg Morphine Sulfate (Ms Contin(*)) 30 mg PO BID [facility] Last Admin: 02/02/18 08:20 Dose: 30 mg Multi-Ingredient Mouthwash/Gargle (Magic M W2 Sherwin/Maal/Nyst/Lido*) 10 ml SWISH SPIT QID [facility] Last Admin: 02/02/18 08:20 Dose: 10 ml Ondansetron HCl (Zofran Inj*) 4 mg IV Q4H PRN PRN Reason: NAUSEA Last Admin: 02/02/18 04:13 Dose: 4 mg Pharmacy Profile Note (Scopolamine Patch Remove*) 1 note PATCH OFF Q72H DARREN Scopolamine (Transderm-Scop 1.5 Mg Patch*) 1 patch TRANSDERM Q72H DARREN Last Admin: 01/31/18 17:25 Dose: 1 patch Sertraline HCl (Zoloft*) 150 mg PO BEDTIME DARREN Last Admin: 02/01/18 20:40 Dose: 150 mg Laboratory Results - last 24 hr 02/02/18 02/02/18 05:31 05:31 WBC 1.8 L RBC 3.50 L Hgb 8.0 L Hct 25 L MCV 72 L MCH 23 L MCHC 32 RDW 21 H Plt Count 228 MPV 6.1 L Neut % (Auto) 67.0 Lymph % (Auto) 17.7 Dundy % (Auto) 14.7 Eos % (Auto) 0 Baso % (Auto) 0.6 Absolute Neuts (auto) 1.2 L Absolute Lymphs (auto) 0.3 L Absolute Monos (auto) 0.3 Absolute Eos (auto) 0 Absolute Basos (auto) 0 Absolute Nucleated RBC 0 Nucleated RBC % 0.2 Sodium 138 Potassium 3.5 Chloride 108 Carbon Dioxide 22 Anion Gap 8 BUN 8 Creatinine 0.44 L Est GFR ( Amer) 179.0 Est GFR (Non-Af Amer) 147.9 BUN/Creatinine Ratio 18.2 Glucose 80 Calcium 8.4 L Magnesium 1.6 L Total Bilirubin 0.20 AST 24 ALT 38 Alkaline Phosphatase 154 H Total Protein 5.2 L Albumin 2.9 L Globulin 2.3 Albumin/Globulin Ratio 1.3 Exam: Gen: 57 yo female who appears chronically ill and fatigued but in NAD HEENT: MMM, resolving mouth sores CV: RRR, no m/r/g Resp: CTA, no w/c/r Abd: soft, mild TTP, bowel sounds active Ext: no edema] Assessment: [57 yo female with metastatic gastric CA who recently resumed palliative FOLFIRI. She was admitted with clinical picture of partial obstruction and severe constipation requiring disimpaction.] Plan: [1. Severe constipation and clinical partial obstruction - now resolving s/p disimpaction - cont bowel regimen - advance diet 2. Metastatic gastric CA - cont palliative FOLFIRI 3. Hypothyroidism - check TSH - cont levothyroxine Dispo: advance diet today, anticipate dc tomorrow]
[2018-02-02] MEDS: LORazepam INJ* 2 MG/ML 1 ML VIAL IV PUSH PRN ×2 (18:48→23:28)
[2018-02-02] MEDS: Sertraline* 50 MG TAB PO SCH (20:06)
[2018-02-03] MEDS: Morphine VIAL* 4 MG/ML VIAL (1 ml vial) IV PRN ×2 (04:12→10:00)
[2018-02-03] MEDS: LORazepam INJ* 2 MG/ML 1 ML VIAL IV PUSH PRN ×2 (04:13→09:59)
[2018-02-03] MEDS: Levothyroxine TAB* 25 MCG TAB PO SCH (05:43)
[2018-02-03] MEDS: Morphine TAB Extended Release (*) 30 MG TAB.ER PO SCH (08:11)
[2018-02-03] MEDS: BuPROPion XL* 150 MG TAB.XL PO SCH (08:13)
[2018-02-03] MEDS: Magic M W2 Ben/Maal/Nyst/Lido* 240 ML MOUTHWASH (alt formulation) SWISH SPIT SCH (08:13)
[2018-02-03] MEDS: Lidocaine 2% JELLY* 6 ML JELLY TOPICAL SCH (08:13)
[2018-02-03] MEDS: NS 0.9% 1000 ML* 1,000 ML IV SCH (08:20)
[2018-02-03 08:53] VITALS: BP 101/71
[2018-02-03] MEDS ORDERED: Scopolamine PATCH Remove* 1 NOTE MISC PATCH OFF SCH (17:00)
--- NOTE | 2018-02-04 02:59 | DS ---
CC: Dr. Talley * DISCHARGE SUMMARY: DATE OF ADMISSION: 01/31/18 DATE OF DISCHARGE: 02/03/18 PRIMARY ONCOLOGIST: Dr. Tanja Talley. ATTENDING PHYSICIAN: Dr. Clive Jones.* (DICTATED BY GINNA GREEN) DISCHARGING PROVIDER: GINNA Green. PRIMARY DISCHARGE DIAGNOSES: 1. Severe constipation with partial bowel obstruction requiring disimpaction. 2. Metastatic gastric cancer. 3. Hypothyroidism. DISCHARGE MEDICATIONS: 1. Wellbutrin XL 150 mg p.o. daily. 2. Vitamin B12 injection 1000 mcg IM monthly. 3. Docusate 200 mg p.o. 3 times daily. 4. Marinol 2.5 mg p.o. twice daily. 5. Synthroid 25 mcg p.o. daily. 6. Lisinopril 5 mg p.o. daily. 7. Magic mouthwash 5 mL swish and spit as needed. 8. Magnesium oxide 500 mg p.o. twice daily. 9. Morphine sulfate extended release 30 mg p.o. twice daily. 10. Zofran 4 mg p.o. q.4 hours as needed for nausea and vomiting. 11. Oxycodone 10 mg p.o. q.4 hours as needed for pain. 12. Pantoprazole 40 mg p.o. twice daily. 13. MiraLAX 17 g p.o. twice daily. 14. Potassium chloride 20 mEq p.o. daily. 15. Scopolamine patch 1 patch applied topically every 72 hours. 16. Simethicone 80 mg p.o. at mealtime as needed. 17. Carafate 10 mL p.o. twice daily. 18. Lactulose 30 mL p.o. twice daily as needed for constipation. 19. Ativan 1 mg p.o. q.6 hours as needed for anxiety. 20. Reglan 10 mg p.o. at mealtime and before bedtime as needed for nausea and vomiting. 21. Zoloft 150 mg p.o. at bedtime. HOSPITAL IMAGING: CT abdomen and pelvis shows ventral hernias containing loops of small bowel without obstruction. There is a large amount of stool within the colon including a large stool ball at the rectum. There is a loop of bowel noted in the plain radiograph, corresponds to the gaseous distention of the loop of sigmoid colon. Stable compression deformities of the spine and hepatomegaly with fatty infiltration of the liver. HOSPITAL COURSE: This is a 57-year-old female with metastatic gastric cancer, who recently elected to restart palliative chemotherapy with FOLFIRI. She recently received her first cycle of treatment and presented in the oncology clinic with severe nausea, vomiting, and abdominal pain. She had a clinical picture of a partial bowel obstruction and a questionable pattern on a plain x- ray. She subsequently went for a CT, which demonstrated a large amount of stool in the colon and ventral hernias with loops of small bowel present, but no acute small bowel obstruction. There was gaseous distention of the sigmoid colon indicative of a partial large bowel obstruction secondary to the severe constipation present. The patient received multiple laxatives and enema without improvement in her constipation. She subsequently received disimpaction by both Dr. Talley and Dr. Shaffer with eventual benefit. The patient's diet was slowly advanced and she was able to tolerate soft foods, although her appetite remains quite poor at the time of discharge. DISPOSITION AND FOLLOWUP PLAN: The patient is being discharged to home with medications as listed above. She has scheduled followup with Dr. Talley for 02/06/18, which she is instructed to keep. Prescribed p.r.n. lactulose and also recommended use of Reglan to help with her nausea management and may help with her gastric and bowel motility as well. GINNA GREEN [id number]/CPS #: [id number] MTDD
== END 2018-02-03 12:30 | disposition home or self-care (01) | DRG 247 ==
LOC: MED 15:40
PROVIDERS: ADMIT Internal Medicine Hematology & Oncology; ATTEND Registered Nurse Oncology
DX: K56.41 Fecal impaction (principal); C79.70 Secondary malignant neoplasm of unspecified adrenal gland; K56.690 Other partial intestinal obstruction; C16.9 Malignant neoplasm of stomach, unspecified; E53.8 Deficiency of other specified B group vitamins; K43.9 Ventral hernia without obstruction or gangrene; F41.9 Anxiety disorder, unspecified; E03.9 Hypothyroidism, unspecified; Z88.5 Allergy status to narcotic agent; Z88.2 Allergy status to sulfonamides; Z88.7 Allergy status to serum and vaccine; Z88.8 Allergy status to other drugs, medicaments and biological substances; Z91.040 Latex allergy status; Z79.1 Long term (current) use of non-steroidal anti-inflammatories (NSAID); Z79.891 Long term (current) use of opiate analgesic; Z79.899 Other long term (current) drug therapy; Z87.891 Personal history of nicotine dependence; Z80.1 Family history of malignant neoplasm of trachea, bronchus and lung; Z80.3 Family history of malignant neoplasm of breast; Z80.0 Family history of malignant neoplasm of digestive organs; Z80.41 Family history of malignant neoplasm of ovary
CPT/HCPCS: 36415; 74176; 80053; 83735; 84443; 84484; 85025; 99220; 99232; 99233; 99239; A9270-GY; J1642; J2060; J2270; J2405

== ENCOUNTER 2018-07-22 13:58 | Emergency (ER) | payer BC ==
[2018-07-22] MEDS ORDERED: Metoclopramide IV* 5 MG/ML 2 ML VIAL IV ONE (15:16)
[2018-07-22] MEDS ORDERED: HYDROmorphone INJ* 0.5 MG/0.5 ML SYRINGE IV SLOW PU ONE (15:20)
[2018-07-22] MEDS ORDERED: NS 0.9% 1000 ML** 1,000 ML IV ONE (15:26)
--- NOTE | 2018-07-22 15:35 | ED ---
Throat Pain/Nasal Congestion - HPI Summary HPI Summary: Pt here w/ h/o stomach cancer and new onset dental pain since Tuesday. #21 is loose and painful - reports gingiva is tender in this area as well - no d/c from the area but jaw and neck are sore here. Denies fever, chills but admits she does not get fever with illness d/t her cancer status and continuous chemo treatments. Dentist can't see her until Tuesday and she's worried about pain and infection. With pain, she has tried taking oxycodone 20mg at home but reports it didn't help and got constipated to the point of vomiting on . Took colace and mag citrate and moved her bowels yesterday - felt much better but is worried about creating same problem by taking more oxycodone. She has been refraining from taking her routine meds d/t nausea - has missed past 2 days of her synthroid, wellbutrin, lisinopril, magnesium, potassium. Feels wiped out since and concerned about lack of PO intake in general past 2 days. - History of Current Complaint Chief Complaint: EDDentalPain Time Seen by Provider: 07/22/18 14:13 Hx Obtained From: Patient, Family/Negative Stripper - male social services counselor - Allergies/Home Medications Allergies/Adverse Reactions: Allergies Allergy/AdvReac Type Severity Reaction Status Date / Time bee pollen Allergy Shortness Verified 07/22/18 14:12 of Breath bee venom protein (honey bee) Allergy Shortness Verified 07/22/18 14:12 of Breath Influenza Virus Vaccines Allergy Anaphylatic Verified 07/22/18 14:12 Shock latex Allergy Hives/Diff. Verified 07/22/18 14:12 Breathing/I tching Latex, Natural Rubber Allergy Hives/Diff. Verified 07/22/18 14:12 Breathing/I tching sulfates Allergy Unknown Hives Uncoded 06/27/18 07:37 PMH/Surg Hx/FS Hx/Imm Hx Previously Healthy: No - stomach cancer, chronic chemo therapy Endocrine/Hematology History: Reports: Hx Thyroid Disease, Hx Anemia - VIT B 12 SHOTS Denies: Hx Diabetes Cardiovascular History: Denies: Hx Hypertension, Hx Pacemaker/ICD, Other Cardiovascular Problems/ Disorders GI History: Reports: Other GI Disorders - GI CA History: Denies: Hx Renal Disease Musculoskeletal History: Reports: Other Musculoskeletal History - hx of left knee injury several yrs ago starting. Sensory History: Reports: Hx Contacts or Glasses Denies: Hx Hearing Aid Opthamlomology History: Reports: Hx Contacts or Glasses Neurological History: Reports: Other Neuro Impairments/Disorders - Current neuropathic pain Psychiatric History: Reports: Hx Anxiety, Hx Depression - ON MEDS Denies: Hx Panic Disorder - Cancer History Cancer Type, Location and Year: STOMACH CA - Surgical History Surgery Procedure, Year, and Place: 1995, OVARIAN CYST , [facility] [place] - OVARY REMOVAL;. TONSILECTOMY, AGE 6,[facility] [place];. THYROID, 2000, [facility] [place];. HEMMORRHOIDECTOMY, 2003, [facility] [place];. C SPINE, 2009, [facility] [place];. KNEE SURGERY;. ABDOMINAL SURGERY FOR STOMACH CANCER REMOVAL Hx Anesthesia Reactions: No Infectious Disease History: No Infectious Disease History: Denies: Traveled Outside the [place] in Last 30 Days - Family History Known Family History: Positive: Other - FMHx of stomach cancer denied, father had bone and lung cancer - Social History Alcohol Use: None Hx Substance Use: No Substance Use Type: Reports: Marijuana - for chronic pain Substance Use Comment - Amount & Last Used: medical Hx Tobacco Use: Yes Smoking Status (MU): Former Smoker Type: Cigarettes Have You Smoked in the Last Year: No Review of Systems Positive: Fatigue - feels wiped d/t decreased PO intake. Negative: Fever, Chills Eyes: Negative Positive: Dental Pain. Negative: Sore Throat, Ear Ache, Nasal Discharge Cardiovascular: Negative Respiratory: Negative Positive: Vomiting, Nausea. Negative: Abdominal Pain, Diarrhea Positive: no symptoms reported Neurological: Negative Psychological: Normal - concerned but calm, pleasant cooperative All Other Systems Reviewed And Are Negative: Yes Physical Exam Triage Information Reviewed: Yes Vital Signs On Initial Exam: Initial Vitals Temp Pulse Resp BP Pulse Ox 97.7 F 94 16 158/118 98 07/22/18 14:07/22/18 14:07/22/18 14:07/22/18 14:07/22/18 14:06 Vital Signs Reviewed: Yes Appearance: Positive: Well-Appearing, Pain Distress - mild to moderate, Thin - excessive skin Skin: Positive: Warm, Skin Color Reflects Adequate Perfusion, Dry Head/Face: Positive: Normal Head/Face Inspection Eyes: Positive: Normal, EOMI, JANEL, Conjunctiva Clear - anicteric ENT: Positive: Hearing grossly normal, Pharynx normal, TMs normal, Dental tenderness - #21, loose - barely rooted; no connor edema, erythema or drainage; poor dentition and partially edentulous (pt reports d/t cancer/chemo). Negative : Nasal congestion, Nasal drainage Dental: Positive: Other - as above Neck: Positive: Supple, Tenderness @ - Lt submandibular region and Lt anterior cervical tissue w/ mild TTP -no connor edema or asymmetry Respiratory/Lung Sounds: Positive: Breath Sounds Present. Negative: Stridor, Tracheal Deviation, Wheezes Cardiovascular: Positive: Normal Abdomen Description: Positive: Nontender, Soft. Negative: Distended Bowel Sounds: Positive: Present Musculoskeletal: Positive: Strength/ROM Intact Neurological: Positive: Normal, Sensory/Motor Intact, Alert, Oriented to Person Place, Time, CN Intact II-III Psychiatric: Positive: Normal - Laurel Coma Scale Best Eye Response: 4 - Spontaneous Best Motor Response: 6 - Obeys Commands Best Verbal Response: 5 - Oriented Coma Scale Total: 15 Diagnostics - Vital Signs Vital Signs Temp Pulse Resp BP Pulse Ox 07/22/18 14:06 97.7 F 94 16 158/118 98 - Laboratory Result Diagrams: 07/22/18 15:55 07/22/18 15:55 Lab Statement: Any lab studies that have been ordered have been reviewed, and results considered in the medical decision making process. Re-Evaluation - Re-Evaluation First Eval Change: Improved - dental pain improved upon tooth falling out EENT Course/Dx - Course Course Of Treatment: Spoke w/ pt, and Dr. Jones. If pt tolerates PO, can go home on clindamycin and keep dental appointment for follow-up. Pt's tooth came out while here and this focal pain has improved since but is still sore in jaw/neck. Provided with IV clindamycin here along with IV reglan, magnesium and NS for rehydration. She was given Potassium PO and has tolerated. If she does not tolerate additional liquids PO, admit for inability to tolerate PO in the face of malnourishment and oral infection. Signed out to Quang Villela PA-C, pending PO abilities. Dr. Carpenter aware. - Diagnoses Provider Diagnoses: Pain, dental Discharge - Sign-Out/Discharge Documenting (check all that apply): Sign-Out Patient Signing out patient TO: Dada Villela Patient Received Moderate/Deep Sedation with Procedure: No - Discharge Plan Condition: Stable Disposition: HOME Prescriptions: Clindamycin HCl 300 mg PO TID #21 capsule Patient Education Materials: Dental Abscess (ED) Referrals: Tanja Talley MD [Medical Doctor] - 2 Days Matt Owens NP [Primary Care Provider] - Additional Instructions: If you develop a fever, shortness of breath, chest pain, new or worsening symptoms - please call your PCP or go to the ED immediately. Your blood pressure was high at todays visit. Please see your primary provider within 4 weeks for recheck and re-evaluation. I recommend that you follow up with your primary doctor and/or oncology doctor early next week for a recheck. If your eating difficulties return, please call 911 or return to the ED - Billing Disposition and Condition Condition: STABLE Disposition: Home
[2018-07-22] MEDS ORDERED: Lidocaine 2% VISCOUS* 15 ML UDC SWISH SPIT ONE (15:42)
[2018-07-22 16:09] LABS: ABS Lymphocytes 0.6 10^3/ul (1.0-4.8); ABS Monocytes 0.1 10^3/ul (0-0.8); ABS Neutrophils 3.1 10^3/ul (1.5-7.7); Eosinophil % 0.1 %; Hematocrit 29 % (35-47); Hemoglobin 9.6 g/dL (12.0-16.0); Lymphocyte % 15.9 %; Mean Corpuscular HGB Conc 33 g/dL (31-36); Mean Corpuscular Hemoglobin 25 pg (27-31); Mean Corpuscular Volume 76 fL (80-97); Mean Platelet Volume 6.3 fL (7.4-10.4); Platelet Count 343 10^3/uL (150-450); Red Blood Count 3.84 10^6 /uL (3.70-4.87); Red Cell Distribution Width 22 % (10.5-15); White Blood Count 3.9 10^3/uL (3.5-10.8)
[2018-07-22 16:24] LABS: Albumin 3.4 g/dL (3.2-5.2); Albumin/Globulin Ratio 1.2 (1-3); BUN/Creatinine Ratio 23.3 (8-20); C Reactive Protein 52.84 mg/L (<8.01); Calcium 9.2 mg/dL (8.6-10.3); EGFR African American 183.1 (>60); EGFR Non-African American 151.3 (>60); Globulin 2.8 g/dL (2-4); Magnesium 1.7 mg/dL (1.9-2.7); Potassium 3.4 mmol/L (3.5-5.0); Total Bilirubin 0.3 mg/dL (0.2-1.0); Total Protein 6.2 g/dL (6.4-8.9)
[2018-07-22] MEDS ORDERED: Potassium Chloride LIQUID* 20 MEQ PACKET PO ONE (17:03)
[2018-07-22] MEDS ORDERED: Magnesium Sulfate 1 GM IV* 1 GM/100 ML BAG IV ONE (17:06)
[2018-07-22] MEDS ORDERED: Clindamycin 600 MG/D5W BAG(*) 600 MG/50 ML BAG IV ONE (17:12)
--- NOTE | 2018-07-22 17:35 | ED ---
Discharge - Discharge Plan Referrals: Matt Owens, HARDWARE INSTALLER [Primary Care Provider] -
--- NOTE | 2018-07-22 17:58 | ED ---
Progress - Progress Note Progress Note: Receiving sign out from Sharita CHACKO pending pt tolerating po fluids well. Pt [place] [facility] with h/o of stomach cancer and dental pain. In the clinical course tooth #21 fell out and had jaw pain with concern for abscess. No fevers. Pt also had issues with constipation over the last week with decreased appetite and decreased po intake. Yesterday she took laxatives and had a large BM with great relief. Course/Dx - Course Course Of Treatment: Pt was observed eating won-ton soup and tolerated po water well without coughing, choking, or aspiration. Since she is tolerating po well and dental/jaw pain is improved s/p tooth falling out - will dc with clindamycin po capsules which she prefers to open and sprinkle onto food/ liquids. Advised to f/u with PCP and/or [facility] next week for a recheck. Pt voiced understanding and agrees with plan. - Diagnoses Provider Diagnoses: Pain, dental Discharge - Sign-Out/Discharge Documenting (check all that apply): Patient Departure Patient Received Moderate/Deep Sedation with Procedure: No - Discharge Plan Condition: Stable Disposition: HOME Prescriptions: Clindamycin HCl 300 mg PO TID #21 capsule Patient Education Materials: Dental Abscess (ED) Referrals: Matt Owens NP [Primary Care Provider] - Tanja Talley MD [Medical Doctor] - 2 Days Additional Instructions: If you develop a fever, shortness of breath, chest pain, new or worsening symptoms - please call your PCP or go to the ED immediately. Your blood pressure was high at todays visit. Please see your primary provider within 4 weeks for recheck and re-evaluation. I recommend that you follow up with your primary doctor and/or oncology doctor early next week for a recheck. If your eating difficulties return, please call 911 or return to the ED - Billing Disposition and Condition Condition: STABLE Disposition: Home
[2018-07-22 19:46] VITALS: BP 130/92
== END 2018-07-22 19:51 | disposition home or self-care (01) ==
LOC: ED 13:58
DX: K08.89 Other specified disorders of teeth and supporting structures (principal); E07.9 Disorder of thyroid, unspecified; F41.9 Anxiety disorder, unspecified; F32.9 Major depressive disorder, single episode, unspecified; Z85.028 Personal history of other malignant neoplasm of stomach; Z88.7 Allergy status to serum and vaccine; Z91.040 Latex allergy status; Z88.2 Allergy status to sulfonamides; Z79.899 Other long term (current) drug therapy; Z87.891 Personal history of nicotine dependence
CPT/HCPCS: 36415; 80053; 83605; 83735; 85025; 86140; 87040; 96361; 96365; 96375; 99283; A9270-GY; J1170; J1642; J2765; J3475

== ENCOUNTER → 2018-07-27 06:50 | Emergency (ER) | payer BC, OTHER ==
[~2018-07-27 06:50] MED LIST changes: +Iohexol 300* (CONTRAST) 10 ML SDV IV ONE; +LORazepam INJ* 2 MG/ML 1 ML VIAL IV ONE; +Lorazepam PYXIS KEY ONE; +Lorazepam PYXIS KEY PRN; +Morphine 4 MG/ML VIAL (1 ml) 4 MG/ML VIAL IV ONE; -Morphine INJ* 2 MG/ML 1 ML SYRINGE (TWO MG - NEW SYRINGE VERSION) ONE
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
[2018-07-27 14:13] VITALS: BP 138/96
== END | disposition home or self-care (01) ==
LOC: ED 06:50
DX: S16.1XXA Strain of muscle, fascia and tendon at neck level, initial encounter (principal); V40.0XXA Car driver injured in collision with pedestrian or animal in nontraffic accident, initial encounter; W22.10XA Striking against or struck by unspecified automobile airbag, initial encounter; Y92.410 Unspecified street and highway as the place of occurrence of the external cause; E07.9 Disorder of thyroid, unspecified; D64.9 Anemia, unspecified; F41.9 Anxiety disorder, unspecified; F32.9 Major depressive disorder, single episode, unspecified; R10.9 Unspecified abdominal pain; R16.0 Hepatomegaly, not elsewhere classified; M85.80 Other specified disorders of bone density and structure, unspecified site; Z88.2 Allergy status to sulfonamides; Z88.7 Allergy status to serum and vaccine; Z91.040 Latex allergy status; Z88.8 Allergy status to other drugs, medicaments and biological substances; Z85.028 Personal history of other malignant neoplasm of stomach; Z87.891 Personal history of nicotine dependence; Z95.828 Presence of other vascular implants and grafts
CPT/HCPCS: 71260; 72125; 74177; 96374; 96375; 99283; J1642; J2060; J2270; Q9967

== ENCOUNTER 2018-07-30 14:21 | Emergency (ER) | payer BC, OTHER ==
[2018-07-30] MEDS ORDERED: NS 0.9% 1000 ML** 1,000 ML IV ONE (16:32)
[2018-07-30] MEDS ORDERED: Morphine 4 MG/ML VIAL (1 ml) 4 MG/ML VIAL IV ONE (16:34)
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
[2018-07-30 17:00] LABS: ABS Lymphocytes 0.6 10^3/ul (1.0-4.8); ABS Monocytes 0.4 10^3/ul (0-0.8); ABS Neutrophils 2.1 10^3/ul (1.5-7.7); Hematocrit 30 % (35-47); Hemoglobin 9.4 g/dL (12.0-16.0); Lymphocyte % 19.9 %; Mean Corpuscular HGB Conc 32 g/dL (31-36); Mean Corpuscular Hemoglobin 24 pg (27-31); Mean Corpuscular Volume 77 fL (80-97); Mean Platelet Volume 6.3 fL (7.4-10.4); Nucleated Red Blood Cells % 0.1; Platelet Count 382 10^3/uL (150-450); Red Blood Count 3.89 10^6 /uL (3.70-4.87); Red Cell Distribution Width 22 % (10-15); White Blood Count 3.1 10^3/uL (3.5-10.8)
[2018-07-30 17:10] LABS: Albumin 3.3 g/dL (3.2-5.2); Albumin/Globulin Ratio 1.3 (1-3); BUN/Creatinine Ratio 29.4 (8-20); C Reactive Protein 3.84 mg/L (<8.01); EGFR African American 150.4 (>60); EGFR Non-African American 124.3 (>60); Globulin 2.6 g/dL (2-4); Potassium 3.1 mmol/L (3.5-5.0); Total Bilirubin 0.2 mg/dL (0.2-1.0); Total Protein 5.9 g/dL (6.4-8.9)
[2018-07-30] MEDS ORDERED: Potassium Chlor TAB* 20 MEQ TAB.ER PO ONE (18:20)
[2018-07-30] MEDS ORDERED: NS 0.9% 1000 ML** 1,000 ML IV SCH (18:30)
[2018-07-30 18:38] LABS: Magnesium 1.9 mg/dL (1.9-2.7)
[2018-07-30] MEDS ORDERED: Potassium Chloride LIQUID* 20 MEQ PACKET PO ONE (19:15)
[2018-07-30 19:45] VITALS: BP 116/80
== END 2018-07-30 19:43 | disposition home or self-care (01) ==
LOC: ED 14:21
DX: E86.0 Dehydration (principal); E87.5 Hyperkalemia; Z87.891 Personal history of nicotine dependence
CPT/HCPCS: 36415; 80053; 83735; 85025; 86140; 96361; 96374; 99283; A9270-GY; J1642; J2270